=== PATIENT | female | born 1945 | race Caucasian/White ===

== ENCOUNTER 2020-12-29 09:16 | Outpatient (REF) | payer MEDICARE, SELFPAY ==
--- NOTE | 2020-12-29 16:34 | MHC.AU.P13 ---
Adult Audiological Evaluation Date of Visit: 12/29/20 Reason for Appointment: Audiological evaluation due to tinnitus and concern for hearing loss. Patient reports that she began experiencing tinnitus approximately one year ago, first in her left ear only then later in both ears. She states that the tinnitus in the left ear is a crunching sound, while in the right ear it is a metallic sound. 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 Allergies: Medication List: Inhaler twice daily Otoscopy: Right Ear: Unremarkable Left Ear: Unremarkable Tympanometry: Tympanometry performed due to: To assess integrity of the middle ear system Right Ear: Normal Middle Ear System (Type A) Left Ear: Normal Middle Ear System (Type A) Hearing Evaluation: Transducer(s) Used: Insert Earphones, Bone Conduction Method: Conventional Audiometry Stimuli Used: Pure Tones Right Ear: Description of Hearing: Normal hearing from 250-2000 Hz, sloping to a mild to moderate sensorineural hearing loss from 4558-0297 Hz. Left Ear: Description of Hearing: Normal hearing from 250-3000 Hz, sloping to a mild to moderate sensorineural hearing loss from 3931-1430 Hz. Speech Recognition Threshold (SRT): Method Used: Monitored Live Voice Stimuli Used: Spondee Words Right Ear: -5 dBHL Left Ear: -10 dBHL Word Discrimination: Method: Recorded Lists Word Lists Used: NU-6 Right Ear: 88% at 50 dBHL Left Ear: 96% at 50 dBHL Recommendations: Audiological re-evaluation in one year. Amplification is not warranted at this time. Counseled on exacerbating factors of tinnitus (nicotine, salt, caffeine, some medications) and tinnitus management strategies (use of noise makers, fans, music, TV to mask the tinnitus, hearing aids). Diagnosis: Primary Diagnosis: H90.3 Bilateral Sensorineural Hearing Loss Secondary Diagnosis: H93.13 Tinnitus, Bilateral Services Performed: Services Performed: Comprehensive Audiological Evaluation (CPT 27736) Tympanometry (CPT 35994) Signature: Provider: Yuliana Woodruff, CCC-A
== END 2020-12-29 09:17 | disposition home or self-care (01) ==
LOC: HO.SH 09:16
PROVIDERS: Visit Provider Internal Medicine
DX: H93.19 Tinnitus, unspecified ear (principal)
CPT/HCPCS: 92557; 92567

== ENCOUNTER 2021-07-27 08:12 | Outpatient (REF) | payer MEDICARE, SELFPAY ==
--- NOTE | ~2021-07-27 | MM_ITS ---
EXAMINATION: BONE DENSITOMETRY CLINICAL INDICATION: Osteopenia. COMPARISON: Previous BD dated 02/16/2017 and baseline BD dated 10/17/2008. TECHNIQUE: Using a [employer] DXA System (software version: 13.1) manufactured by [employer], dual-energy x-ray absorptiometry was performed of the lumbar spine and left hip. The images are of good technical quality. Summary results are attached. FINDINGS: AP SPINE L1-L4: Current: BMD 0.932 g/cm2, Z-score 0.0, T-score -2.1, osteopenia, 1.9% decrease from previous, 2.0% increase from baseline (<5% change is not significant). Prior: BMD 0.950 g/cm2. Baseline: BMD 0.914 g/cm2. LEFT FEMUR, NECK: Current: BMD 0.660 g/cm2, Z-score -0.5, T-score -2.7, osteoporosis. Prior: BMD 0.690 g/cm2. Baseline: BMD 0.692 g/cm2. LEFT FEMUR, TOTAL: Current: BMD 0.830 g/cm2, Z-score 0.6, T-score -1.4, osteopenia, 1.1% increase from previous, 2.8% decrease from baseline (<5% change is not significant). Prior: BMD 0.821 g/cm2. Baseline: BMD 0.854 g/cm2. IDENTIFIED RISK FACTORS: Menopause, family history (parent hip fracture). HISTORY OF FRACTURE: None listed. MEDICATIONS: Calcium, vitamin D. MM/XR DEXA axial skeleton IMPRESSION: 1. DIAGNOSIS: Osteoporosis based on the lowest T-score value of -2.7 in the femoral neck applying World Health Organization criteria. 2. 10-YEAR FRACTURE RISK PREDICTION, FRAX: Major osteoporotic fracture (clinical spine, forearm, hip or shoulder) 39.0%. Hip fracture 28.2%. 3. Treatment Recommendations: NOF guidelines recommend consideration for treatment in postmenopausal women and men age 50 and older presenting with the following: -A hip or vertebral (clinical or morphometric) fracture. -T-score less than or equal to -2.5 at the femoral neck or spine after appropriate evaluation to exclude secondary causes. -Low bone mass at the hip or spine and a 10-year fracture probability by FRAX of greater than or equal to 3% for hip fracture or greater than or equal to 20% for major osteoporotic fracture based on the [place] adapted WHO algorithm. 4. Other Recommendations: All treatment decisions require clinical judgment and consideration of individual patient factors, including patient preferences, comorbidities, previous drug use, risk factors not captured in the FRAX model (e.g. frailty, falls, vitamin D deficiency, increased bone turnover, interval significant decline in bone density) and possible under or overestimation of fracture risk by FRAX. Additional medical evaluation for secondary cause of low bone mineral density may be appropriate. FUTURE SCAN RECOMMENDATION: People with diagnosed cases of osteoporosis or at high risk for fracture should have regular bone mineral density tests. For patients eligible for Medicare, routine testing is allowed once every 2 years. The testing frequency can be increased to one year for patients who have rapidly progressing disease, those who are receiving or discontinuing medical therapy to restore bone mass, or have additional risk factors.
--- NOTE | ~2021-07-27 | MM_ITS ---
EXAMINATION: MM SCREENING DIGITAL BREAST TOMOSYNTHESIS, BILATERAL CLINICAL INFORMATION: Screening. Asymptomatic. History left lumpectomy COMPARISON: Mammography: June 17, 2020 and studies dating back to November 03, 2011 TECHNIQUE: Digital breast tomosynthesis is performed in both the craniocaudal and mediolateral oblique views along with computer-aided detection (CAD). Synthesized 2D images are generated from the tomosynthesis. FINDINGS: There are scattered areas of fibroglandular density (ACR BI-RADS breast composition Category b). There are no new significant masses, abnormal calcifications, or other abnormalities. Left breast postsurgical change again seen. MM/MM tomosynthesis screening BI IMPRESSION: There are no significant changes from prior study. ASSESSMENT: BI-RADS 2: Benign RECOMMENDATION: Routine annual mammography screening. This patient's information was entered into a reminder system with a target due date for their next mammogram.
== END 2021-07-27 08:13 | disposition home or self-care (01) ==
LOC: HO.MAMMO 08:12
PROVIDERS: PCP Internal Medicine; Visit Provider Internal Medicine
DX: Z13.820 Encounter for screening for osteoporosis (principal); Z78.0 Asymptomatic menopausal state; M85.80 Other specified disorders of bone density and structure, unspecified site; Z12.31 Encounter for screening mammogram for malignant neoplasm of breast
CPT/HCPCS: 77063; 77067; 77080

== ENCOUNTER 2021-09-20 12:55 | Day surgery (SDC) | payer MEDICARE, SELFPAY ==
[2021-09-13 14:36] VITALS: BMI 24.7
--- NOTE | 2021-09-17 11:07 | HO.ANESPROP2 ---
Documented by User: Mariajose Talavera NP 09/17/21 11:08 HPI - Anesthesia Eval Consult details Narrative: 76yo F for Colonoscopy PMFSH Active Problems Active Problems: All Active Problems (Updated 09/13/21 @ 14:20 by Jeny James RN) Impacted cerumen of left ear (Acute) Tinnitus (Acute) Anxiety (Acute) Annual physical exam (Acute) Osteopenia (Acute) Colon cancer screening (Acute) Positive colorectal cancer screening using Cologuard test (Acute) Allergic rhinitis (Acute) Breast cancer (Acute) Hypercholesterolemia (Acute) Asthma (Acute) Past Medical History Medical History (Updated 09/13/21 @ 14:20 by Jeny James RN) Allergic rhinitis Asthma Breast cancer COVID-19 vaccine series completed Hypercholesterolemia Multiple sclerosis Osteopenia Pulmonary nodule Rotator cuff dysfunction Vitamin B12 deficiency Vitamin D deficiency Surgical History Surgical History (Updated 09/13/21 @ 14:17 by Jeny James RN) H/O colonoscopy History of lumpectomy of left breast Social History Social History (Updated 09/13/21 @ 14:34 by Jeny James RN) Housing: House Patient Tobacco Use Status: Former Tobacco user Quit Date: age 19 Tobacco use type: Cigarette e-Cigarette/Vaping Use: Never Used Second Hand Smoke Exposure: No Use of substances other than those prescribed or required for medical reasons: No Advance Directives Information Provided: Yes (informational brochure mailed) Advance Directives on File: No service: No Current occupational status: retired Meds Allergies Allergy/AdvReac Type Severity Reaction Status Date / Time Sulfa (Sulfonamide Allergy Intermediate ITCHING Verified 09/13/21 14:19 Antibiotics) [SULFA (SULFONAMIDE ANTIBIOTICS)] cholecalciferol (vitamin D3) Allergy Unknown Unknown Verified 09/13/21 14:19 [Vitamin D3] Home Medications Medication Instructions Recorded Confirmed Last Taken Type ibuprofen 400 mg tablet 400 mg PO TID 11/26/20 09/13/21 Unknown History lactobacillus combination no.8 3 3,000 mmu cells PO DAILY 11/26/20 09/13/21 Unknown History billion cell capsule (Adult Probiotic) multivitamin 1 tab PO DAILY 11/26/20 09/13/21 Unknown History Exam Exam Date and Time: September 17, 2021 1107 Height,Weight and Vital Signs: Height 5 ft Weight 57.606 kg Assessment and Plan Assessment Anesthesia Assessment: Chart Reviewed Documented by User: Titus Jimenez 09/20/21 15:04 PMFSH Past Medical History Medical History (Updated 09/13/21 @ 14:20 by Jeny James RN) Allergic rhinitis Asthma Breast cancer COVID-19 vaccine series completed Hypercholesterolemia Multiple sclerosis Osteopenia Pulmonary nodule Rotator cuff dysfunction Vitamin B12 deficiency Vitamin D deficiency Functional capacity: independent ambulation Family History Family history of problems with anesthesia: No Surgical History Surgical History (Updated 09/13/21 @ 14:17 by Jeny James RN) H/O colonoscopy History of lumpectomy of left breast History of Problems with Anesthesia: No Social History Social History (Updated 09/13/21 @ 14:34 by Jeny James RN) Housing: House Patient Tobacco Use Status: Former Tobacco user Quit Date: age 19 Tobacco use type: Cigarette e-Cigarette/Vaping Use: Never Used Second Hand Smoke Exposure: No Use of substances other than those prescribed or required for medical reasons: No Advance Directives Information Provided: Yes (informational brochure mailed) Advance Directives on File: No service: No Current occupational status: retired Meds Allergies Allergy/AdvReac Type Severity Reaction Status Date / Time Sulfa (Sulfonamide Allergy Intermediate ITCHING Verified 09/13/21 14:19 Antibiotics) [SULFA (SULFONAMIDE ANTIBIOTICS)] cholecalciferol (vitamin D3) Allergy Unknown Unknown Verified 09/13/21 14:19 [Vitamin D3] Home Medications Medication Instructions Recorded Confirmed Last Taken Type ibuprofen 400 mg tablet 400 mg PO TID 11/26/20 09/13/21 Unknown History lactobacillus combination no.8 3 3,000 mmu cells PO DAILY 11/26/20 09/13/21 Unknown History billion cell capsule (Adult Probiotic) multivitamin 1 tab PO DAILY 11/26/20 09/13/21 Unknown History Exam Airway Mallampati Class: III Partial: Upper and Lower Loose/Missing/Broken Teeth: Yes Assessment and Plan Final Anesthetic Review Family History of Problems with Anesthesia: No History of Problems with Anesthesia: No NPO: Yes ASA Class: II Final Preanesthetic Review: Meds/Lina Chart Reviewed Patient Risk: Intermediate Procedure Risk: Intermediate Anesthetic Plan Anesthetic Plan: MAC: Disposition: Standard PACU
[2021-09-20 13:23] VITALS: BP 141/66; PULSE 81; RESP 15; TEMP 37.1; O2SAT 97; BMI 24.4
[2021-09-20] MEDS: Lactated Ringers 1,000 ML 100 ML IVCONT (13:48)
[2021-09-20 16:08] VITALS: BP 125/69; PULSE 64; RESP 16; TEMP 36.2; O2SAT 99
--- NOTE | 2021-09-20 16:10 | P.BOP_ITS ---
Brief Operative Note Date of Service: 09/20/21 Pre-op diagnosis: + Cologuard Test Post-op diagnosis: other (Diverticulosis) Procedure: Colonoscopy to the cecum Surgeon: John Tellez Anesthesia: MAC Was an Professor Of Mathematics used for this Procedure?: No Estimated blood loss (mL): 0 Pathology: none sent Condition: stable Disposition: PACU
[2021-09-20 16:25] VITALS: BP 116/59; PULSE 70; RESP 18; TEMP 36.2; O2SAT 98
--- NOTE | 2021-09-20 20:30 | OP_ITS ---
SURGEON: John Tellez MD INDICATIONS: The patient presents for evaluation of positive Cologuard test. Full consent has been obtained from her for this, including risks of bleeding and perforation. PREOPERATIVE DIAGNOSIS: Positive Cologuard test. POSTOPERATIVE DIAGNOSIS: PROCEDURE PERFORMED: Colonoscopy to the cecum. ESTIMATED BLOOD LOSS: COMPLICATIONS: ANESTHESIA: Monitored anesthesia care. ASSISTANTS: SPECIMENS: POSTOPERATIVE DIAGNOSES: Positive Cologuard test, diverticulosis and internal hemorrhoids. DESCRIPTION OF PROCEDURE: The patient was placed in the left lateral decubitus position. The digital rectal exam revealed no abnormalities. The Olympus video pediatric colonoscope was entered into the rectum and advanced to the cecum with the assistance of abdominal wall pressure. Once in the cecum, I did identify normal-appearing cecal pouch with appendiceal orifice and a normal-appearing ileocecal valve. There was transillumination of light deep in the right lower quadrant. The entire cecum and ileocecal valve appeared normal. The scope was slowly withdrawn assessing all mucosal surfaces carefully. Preparation throughout the colon was very good except for the descending and sigmoid colon had some fair amount of thick liquid stool, which was copiously irrigated and suctioned away. For the most part, visualization was good, although was not ideal. I did not visualize any sign of polyps, colitis, nor angiodysplasia. There was a mild amount of sigmoid diverticulosis. The rectum appeared normal, although I was having trouble retroflexing the scope. However in the forward viewing position, I obtained a good visualization and both the proximal and distal rectum did appear normal. The scope was withdrawn from the patient. She tolerated procedure well and was returned to the recovery area in stable condition. IMPRESSION: Diverticulosis. PLAN: At this point, the patient has been asymptomatic. She had a negative colonoscopy in 2009 and given today's negative exam, I do not think she will need any further screening colonoscopies. She has had no signs of bleeding nor any change in bowel habits. She will see me again on a p.r.n. basis. MD TAM Rodriguez/NAVEEN / [id number]
== END 2021-09-20 16:31 | disposition home or self-care (01) ==
PROVIDERS: PCP Internal Medicine; Visit Provider Internal Medicine
PROC: 0DJD8ZZ Inspection of Lower Intestinal Tract, Via Natural or Artificial Opening Endoscopic (ICD-10-PCS; CPT 45378; principal; 2021-09-20 14:10)
DX: R19.5 Other fecal abnormalities (principal); K57.30 Diverticulosis of large intestine without perforation or abscess without bleeding; K64.8 Other hemorrhoids; J45.909 Unspecified asthma, uncomplicated; G35 Multiple sclerosis; Z79.899 Other long term (current) drug therapy; Z85.3 Personal history of malignant neoplasm of breast; Z92.3 Personal history of irradiation; Z92.21 Personal history of antineoplastic chemotherapy; Z87.891 Personal history of nicotine dependence
CPT/HCPCS: 45378

== ENCOUNTER 2021-12-17 07:56 | Outpatient (REF) | payer MEDICARE, SELFPAY ==
[2021-12-17 12:06] LABS: MANUAL DIFF FLAG NO
[2021-12-17 12:07] LABS: Basophils Absolute Auto 0.1 X10*3/uL (0.0-0.2); Basophils Percent Auto 0.9 % (0-2); Eosinophils Absolute Auto 0.3 X10*3/uL (0.0-0.4); Eosinophils Percent Auto 5.2 % (0-4); Hematocrit 39.8 % (37.0-47.0); Imm Gran Abs Auto 0.01 X10*3/uL (0.00-0.03); Imm Gran Pct Auto 0.2 % (0.0-0.4); Lymphocytes Absolute Auto 1.4 X10*3/uL (1.2-4.9); Lymphocytes Percent Auto 26.2 % (20-40); Mean Corpuscular HGB Conc 32.7 g/dl (31.0-35.0); Mean Corpuscular Hemoglobin 31.6 pg (27.0-33.0); Mean Corpuscular Volume 96.6 fL (80.0-98.0); Mean Platelet Volume 11.1 fL (9.4-12.3); Monocytes Absolute Auto 0.5 X10*3/uL (0.1-1.2); Monocytes Percent Auto 8.4 % (2-11); Neutrophils Absolute Auto 3.2 x10*3/uL (2.0-8.3); Neutrophils Percent Auto 59.1 % (45-73); Platelet Count 248 X10*3/uL (160-400); Red Blood Count 4.12 X10*6/uL (4.20-5.50); Red Cell Distribution Width 13.2 % (11.0-16.0); White Blood Count 5.3 X10*3/uL (4.8-10.8)
[2021-12-17 12:35] LABS: Alanine Aminotransferase 11 U/L (0-31); Albumin Level 4.1 g/dL (3.5-5.0); Alkaline Phosphatase 104 U/L (39-117); Anion Gap 11 (12-20); Aspartate Amino Transferase 14 U/L (5-31); Bilirubin Total 0.7 mg/dL (0.0-1.0); Blood Urea Nitrogen 18 mg/dL (9-16); Calcium 9.2 mg/dL (8.4-10.2); Carbon Dioxide 31 mmol/L (22-29); Chloride 102 mmol/L (96-108); Cholesterol 233 mg/dL; Estimated Glomerular Filt Rate > 60; Glucose Random 82 mg/dL (60-115); HDL Cholesterol 73 mg/dL; LDL Cholesterol Calculated 144 mg/dl; Potassium 4.3 mmol/L (3.3-5.1); Sodium 140 mmol/L (135-145); Total Protein 6.9 g/dL (6.5-8.0); Triglycerides 83 mg/dL
[2021-12-17 12:49] LABS: Free T4 (Free Thyroxine) 0.86 ng/dL (0.71-1.85); Thyroid Stimulating Hormone 3.32 uIU/mL (0.32-4.0); Vitamin D 25-OH Total 17.5 ng/mL (>30)
[2021-12-17 12:56] LABS: Folate 7.3 ng/mL (> or = 4.0); Vitamin B12 262 pg/mL (200-900)
== END 2021-12-17 07:57 | disposition home or self-care (01) ==
LOC: HO.10HDL 07:56
PROVIDERS: Visit Provider Internal Medicine
DX: E78.00 Pure hypercholesterolemia, unspecified (principal)
CPT/HCPCS: 36415; 80053; 80061; 82306; 82607; 82746; 84439; 84443; 85025

== ENCOUNTER 2022-08-02 08:07 | Outpatient (REF) | payer MEDICARE, SELFPAY ==
--- NOTE | ~2022-08-02 | MM_ITS ---
EXAMINATION: MM SCREENING DIGITAL BREAST TOMOSYNTHESIS, BILATERAL CLINICAL INFORMATION: Screening. Asymptomatic. Left breast cancer status post lumpectomy, 2000. COMPARISON: Mammography: 07/27/2021, 06/21/2020, 03/23/2019 TECHNIQUE: Digital breast tomosynthesis is performed in both the craniocaudal and mediolateral oblique views along with computer-aided detection (CAD). Synthesized 2D images are generated from the tomosynthesis. FINDINGS: There are scattered areas of fibroglandular density (ACR BI-RADS breast composition Category b). There are post therapy changes on the left similar to prior studies with stable scarring, surgical clips, reduced breast size, biopsy clip marker within the scar, and benign coarse calcifications in the scar. The breast shows interval mass or architectural abnormality or developing density. No abnormal calcifications. No significant changes from prior studies. MM/MM tomosynthesis screening BI IMPRESSION: -No mammographic evidence of malignancy. -Post therapy changes, left breast. ASSESSMENT: BI-RADS 2: Benign RECOMMENDATION: Routine annual mammography screening. This patient's information was entered into a reminder system with a target due date for their next mammogram.
== END 2022-08-02 08:08 | disposition home or self-care (01) ==
LOC: HO.MAMMO 08:07
PROVIDERS: Visit Provider Internal Medicine
DX: Z12.31 Encounter for screening mammogram for malignant neoplasm of breast (principal)
CPT/HCPCS: 77063; 77067

== ENCOUNTER 2023-02-02 07:37 | Outpatient (REF) | payer MEDICARE, SELFPAY ==
[2023-02-02 10:42] LABS: MANUAL DIFF FLAG NO
[2023-02-02 10:51] LABS: Basophils Absolute Auto 0.1 X10*3/uL (0.0-0.2); Eosinophils Absolute Auto 0.5 X10*3/uL (0.0-0.4); Eosinophils Percent Auto 7.2 % (0-4); Hematocrit 42.3 % (37.0-47.0); Hemoglobin 13.9 g/dl (12.0-16.0); Imm Gran Abs Auto 0.02 X10*3/uL (0.00-0.03); Imm Gran Pct Auto 0.3 % (0.0-0.4); Lymphocytes Absolute Auto 1.2 X10*3/uL (1.2-4.9); Lymphocytes Percent Auto 19.3 % (20-40); Mean Corpuscular HGB Conc 32.9 g/dl (31.0-35.0); Mean Corpuscular Volume 97.5 fL (80.0-98.0); Mean Platelet Volume 11.2 fL (9.4-12.3); Monocytes Absolute Auto 0.4 X10*3/uL (0.1-1.2); Monocytes Percent Auto 6.1 % (2-11); Neutrophils Absolute Auto 4.2 x10*3/uL (2.0-8.3); Neutrophils Percent Auto 66.1 % (45-73); Platelet Count 260 X10*3/uL (160-400); Red Blood Count 4.34 X10*6/uL (4.20-5.50); Red Cell Distribution Width 13.1 % (11.0-16.0); White Blood Count 6.3 X10*3/uL (4.8-10.8)
[2023-02-02 11:21] LABS: Alanine Aminotransferase 12 U/L (0-31); Albumin Level 4.3 g/dL (3.5-5.0); Alkaline Phosphatase 91 U/L (39-117); Anion Gap 14 (12-20); Aspartate Amino Transferase 13 U/L (5-31); Bilirubin Total 0.6 mg/dL (0.0-1.0); Blood Urea Nitrogen 15 mg/dL (9-16); Calcium 9.2 mg/dL (8.4-10.2); Carbon Dioxide 29 mmol/L (22-29); Chloride 104 mmol/L (96-108); Cholesterol 245 mg/dL; Estimated Glomerular Filt Rate > 60; Glucose Random 77 mg/dL (60-115); HDL Cholesterol 78 mg/dL; LDL Cholesterol Calculated 154 mg/dl; Potassium 4.2 mmol/L (3.3-5.1); Sodium 143 mmol/L (135-145); Total Protein 6.8 g/dL (6.5-8.0); Triglycerides 67 mg/dL
[2023-02-02 11:51] LABS: Folate 9.2 ng/mL (> or = 4.0); Free T4 (Free Thyroxine) 0.92 ng/dL (0.71-1.85); Thyroid Stimulating Hormone 2.98 uIU/mL (0.32-4.0); Vitamin B12 233 pg/mL (200-900); Vitamin D 25-OH Total 14.5 ng/mL (>30)
== END 2023-02-02 07:38 | disposition home or self-care (01) ==
LOC: HO.10HDL 07:37
PROVIDERS: Visit Provider Internal Medicine
DX: J45.20 Mild intermittent asthma, uncomplicated (principal); E78.00 Pure hypercholesterolemia, unspecified; M81.0 Age-related osteoporosis without current pathological fracture
CPT/HCPCS: 36415; 80053; 80061; 82306; 82607; 82746; 84439; 84443; 85025

== ENCOUNTER 2023-08-11 07:47 | Outpatient (REF) | payer MEDICARE, SELFPAY ==
--- NOTE | ~2023-08-11 | MM_ITS ---
EXAMINATION: MM SCREENING DIGITAL BREAST TOMOSYNTHESIS, BILATERAL CLINICAL INFORMATION: Screening. Asymptomatic. The patient has a history of prior treated left breast cancer. COMPARISON: Mammography: This study is compared with prior exams dating back to 2017. TECHNIQUE: Digital breast tomosynthesis is performed in both the craniocaudal and mediolateral oblique views along with computer-aided detection (CAD). Synthesized 2D images are generated from the tomosynthesis. FINDINGS: There are scattered areas of fibroglandular density (ACR BI-RADS breast composition Category b). There are no significant masses, abnormal calcifications, or other abnormalities. There is postsurgical scarring and associated, benign, dystrophic calcification left breast from prior breast cancer treatment. There is also a biopsy tissue marker present in the upper outer quadrant of the left breast, in the location of the surgical scar. MM/MM tomosynthesis screening BI IMPRESSION: No mammographic evidence of malignancy. ASSESSMENT: BI-RADS BI-RADS 2 - Benign Findings RECOMMENDATION: Routine annual mammography screening. 1 year F/U This examination should not preclude the clinical evaluation of a suspicious palpable abnormality. This patient's information was entered into a reminder system with a target due date for their next mammogram.
== END 2023-08-11 07:48 | disposition home or self-care (01) ==
LOC: HO.MAMMO 07:47
PROVIDERS: PCP Internal Medicine; Visit Provider Internal Medicine
DX: Z12.31 Encounter for screening mammogram for malignant neoplasm of breast (principal)
CPT/HCPCS: 77063; 77067

== ENCOUNTER → 2023-08-11 08:00 | Outpatient (BNV) | payer MEDICARE, SELFPAY | PROVIDERS: PCP Internal Medicine; Visit Provider Radiology Diagnostic Radiology | DX: Z12.31 Encounter for screening mammogram for malignant neoplasm of breast (principal) | CPT/HCPCS: 77063; 77067 ==

== ENCOUNTER 2023-10-05 15:05 | Outpatient (AMB) | payer MEDICARE, SELFPAY ==
[2023-10-05 15:12] VITALS: BP 126/68; PULSE 68; O2SAT 99; BMI 21.7
--- NOTE | 2023-10-05 15:12 | A.OFFPC_ITS ---
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 Allergies Sulfa (Sulfonamide Antibiotics) [SULFA (SULFONAMIDE ANTIBIOTICS)] Allergy (Intermediate, Verified 10/05/23 15:31) ITCHING cholecalciferol (vitamin D3) [Vitamin D3] Allergy (Unknown, Verified 10/05/23 15:31) Unknown Medication List - Last Reconciled 10/05/23 by Rasheed Guzman MD aclidinium bromide 400 mcg/actuation (Tudorza Pressair) 1 inh inhalation Q12H albuterol sulfate 90 mcg/actuation (Ventolin HFA) 2 puffs inhalation Q4-6H PRN alprazolam 0.25 mg PO DAILY PRN 30 days cetirizine (Zyrtec) 10 mg PO DAILY PRN fluticasone propion-salmeterol 250-50 mcg/dose (Wixela Inhub) 1 inh inhalation BID ibuprofen 400 mg PO TID lactobacillus combination no.8 (Adult Probiotic) 3,000 mmu cells PO DAILY montelukast 10 mg PO BEDTIME multivitamin 1 tab PO DAILY raloxifene (Evista) 60 mg PO DAILY 30 days Tobacco use date assessed: 10/05/23 Fall risk assessment: No Falls in past year Last assessed Fall Risk: 10/05/23 HPI generalizes weakness, fatigue HPI Details 78-year-old female with a history of ast hma generalized anxiety disorder history of breast cancer hypercholesterolemia and osteoporosis last seen in January 2023. Mammograms up-to-date osteopenia July 2021 due for bone density patient comes in for follow-up. 3 weeks ago , L ear crckling sound, ROACH - no covid testing , chills, weak 3 weeks , cough, no increase sob, , no frequency, , , mild diarrhea PFSH Medical History (Updated 10/05/23 @ 16:10 by Rasheed Guzman MD) Generalized anxiety disorder COVID-19 vaccine series completed Positive colorectal cancer screening using Cologuard test Colon cancer screening Annual physical exam Rotator cuff dysfunction Multiple sclerosis Allergic rhinitis Pulmonary nodule Hypercholesterolemia Vitamin B12 deficiency Vitamin D deficiency Breast cancer Asthma Surgical History (Updated 09/13/21 @ 14:17 by Jeny James RN) History of lumpectomy of left breast H/O colonoscopy Social History (Updated 09/13/21 @ 14:34 by Jeny James, RN) Housing: House Patient Tobacco Use Status: Former Tobacco user Quit Date: age 19 Tobacco use type: Cigarette e-Cigarette/Vaping Use: Never Used Second Hand Smoke Exposure: No service: No Current occupational status: retired Cognitive needs: No Hearing needs: No Vision needs: Yes Questionnaire Thrive Questionnaire Date Thrive assessed: 01/19/23 AUDIT C Alcohol Use Questionnaire (AUDIT-C) 1. How often do you have a drink containing alcohol?: Monthly or less 2. How many drinks containing alcohol do you have on a typical day when you are drinking?: 1 or 2 3. How often do you have six or more drinks on one occasion?: Never Total Score: 1 ERMA-7 AMB Questionnaire ERMA-7 Date ERMA - 7 assessed: 01/19/23 Source: Developed by Drs. John Coy, Maritza Lam, Neri Portillo and colleagues, with an educational paul from [employer]. Physical exam (Primary Care) Vital Signs: Last Vital Signs Pulse 68 10/05/23 15:12 BP 126/68 10/05/23 15:12 Pulse Ox 99 10/05/23 15:12 Oxygen Delivery Method Room Air 10/05/23 15:12 BMI result Body Mass Index 21.7 Tobacco/Smoking Status: Tobacco use Status Tobacco use date assessed 10/05/23 10/05/23 15:13 Patient Tobacco Use Status Former Tobacco user 10/05/23 15:13 Tobacco use type Cigarette 10/05/23 15:13 e-Cigarette/Vaping Use Never Used 10/05/23 15:13 Thrive Assessment: Date of Thrive Assessment Date Thrive assessed 01/19/23 10/05/23 15:13 Const General: alert; No acute distress Eyes Conjunctivae: conjunctivae normal Resp Other: decrease breath sounds, Cardio Rate: regular rate Rhythm: regular rhythm GI Inspection: Yes normal to inspection Extrem General: Yes normal to inspection and No edema Assessment and Plan Assessment & Plan (1) Breast cancer: Comment: 2000 left lumpectomy chemotherapy radiation Code(s): C50.919 - Malignant neoplasm of unspecified site of unspecified female breast Qualifiers: Breast location: unspecified site of breast Estrogen receptor status: unspecified Patient sex: female Laterality: left Qualified Code(s): C50.912 - Malignant neoplasm of unspecified site of left female breast Plan: Patient is up-to-date with mammogram on Evista (2) Asthma: Comment: has wixela & albuterol inhalers Code(s): J45.909 - Unspecified asthma, uncomplicated Qualifiers: Asthma severity: mild Asthma persistence: intermittent Asthma complication type: uncomplicated Qualified Code(s): J45.20 - Mild intermittent asthma, uncomplicated Plan: Continue with inhaler as needed and on fluticasone/salmeterol/Tudorza (3) Hypercholesterolemia: Code(s): E78.00 - Pure hypercholesterolemia, unspecified Plan: Avoid fried foods, chicken skin, eggs, butter margarine, pastries and meat. Be it pork or beef they have a lot of cholesterol LDL goal of less than 130 and triglyceride of less than 150 (4) Osteoporosis: Comment: July 2021 Code(s): M81.0 - Age-related osteoporosis without current pathological fracture Plan: Patient is due for bone density (5) ERMA (generalized anxiety disorder): Code(s): F41.1 - Generalized anxiety disorder Plan: Continue with alprazolam as needed (6) Impacted cerumen of both ears: Code(s): H61.23 - Impacted cerumen, bilateral Plan: will need irrigation Orders: Orders Complete Blood Count Auto Diff Today J45.20 - Mild intermittent asthma, uncomplicated Comprehensive Met. Panel Today J45.20 - Mild intermittent asthma, uncomplicated UA CC w/rflx Micro + Cult Today J45.20 - Mild intermittent asthma, uncomplicated, R30.0 - Dysuria XR chest 2V Today J45.20 - Mild intermittent asthma, uncomplicated Thyroid Stimulating Hormone Today J45.20 - Mild intermittent asthma, uncomplicated Free T4 (Free Thyroxine) Today J45.20 - Mild intermittent asthma, uncomplicated Coding Level of Care Code Est Pt Level 4 (73885) Diagnoses Malignant neoplasm of left female breast, unspecified estrogen receptor status, unspecified site of breast C50.912 Breast location: unspecified site of breast Estrogen receptor status: unspecified Patient sex: female Laterality: left Mild intermittent asthma without complication J45.20 Asthma severity: mild Asthma persistence: intermittent Asthma complication type: uncomplicated Hypercholesterolemia E78.00 Osteoporosis M81.0 ERMA (generalized anxiety disorder) F41.1 Impacted cerumen of both ears H61.23
== END 2023-10-05 16:18 | disposition home or self-care (01) ==
PROVIDERS: PCP Internal Medicine; Visit Provider Internal Medicine
DX: C50.912 Malignant neoplasm of unspecified site of left female breast (principal); J45.20 Mild intermittent asthma, uncomplicated; E78.00 Pure hypercholesterolemia, unspecified; M81.0 Age-related osteoporosis without current pathological fracture; F41.1 Generalized anxiety disorder; H61.23 Impacted cerumen, bilateral
CPT/HCPCS: 99214

== ENCOUNTER 2023-10-12 07:57 | Outpatient (REF) | payer MEDICARE, SELFPAY ==
[2023-10-12 08:14] LABS: MANUAL DIFF FLAG NO
[2023-10-12 08:19] LABS: Basophils Absolute Auto 0.1 X10*3/uL (0.0-0.2); Basophils Percent Auto 1.3 % (0-2); Eosinophils Absolute Auto 0.4 X10*3/uL (0.0-0.4); Eosinophils Percent Auto 9.7 % (0-4); Hemoglobin 13.3 g/dl (12.0-16.0); Imm Gran Abs Auto 0.01 X10*3/uL (0.00-0.03); Imm Gran Pct Auto 0.2 % (0.0-0.4); Lymphocytes Absolute Auto 1.4 X10*3/uL (1.2-4.9); Lymphocytes Percent Auto 30.6 % (20-40); Mean Corpuscular HGB Conc 33.3 g/dl (31.0-35.0); Mean Corpuscular Hemoglobin 32.4 pg (27.0-33.0); Mean Corpuscular Volume 97.6 fL (80.0-98.0); Mean Platelet Volume 10.1 fL (9.4-12.3); Monocytes Absolute Auto 0.4 X10*3/uL (0.1-1.2); Monocytes Percent Auto 8.1 % (2-11); Neutrophils Absolute Auto 2.3 x10*3/uL (2.0-8.3); Neutrophils Percent Auto 50.1 % (45-73); Platelet Count 230 X10*3/uL (160-400); Red Cell Distribution Width 12.8 % (11.0-16.0); White Blood Count 4.5 X10*3/uL (4.8-10.8)
[2023-10-12 09:45] LABS: Alanine Aminotransferase 12 U/L (0-31); Alkaline Phosphatase 71 U/L (39-117); Anion Gap 13 (12-20); Aspartate Amino Transferase 15 U/L (5-31); Bilirubin Total 0.4 mg/dL (0.0-1.0); Blood Urea Nitrogen 13 mg/dL (9-16); Calcium 9.1 mg/dL (8.4-10.2); Carbon Dioxide 28 mmol/L (22-29); Chloride 106 mmol/L (96-108); Estimated Glomerular Filt Rate > 60; Free T4 (Free Thyroxine) 0.85 ng/dL (0.71-1.85); Glucose Random 85 mg/dL (60-115); Potassium 3.8 mmol/L (3.3-5.1); Sodium 143 mmol/L (135-145); Thyroid Stimulating Hormone 3.76 uIU/mL (0.32-4.0); Total Protein 6.8 g/dL (6.5-8.0)
== END 2023-10-12 07:58 | disposition home or self-care (01) ==
LOC: HO.LAB 07:57
PROVIDERS: PCP Internal Medicine; Visit Provider Internal Medicine
DX: J45.20 Mild intermittent asthma, uncomplicated (principal); R30.0 Dysuria
CPT/HCPCS: 36415; 71046; 80053; 84439; 84443; 85025

== ENCOUNTER 2023-12-25 09:53 | Outpatient (AMB) | payer MEDICARE, SELFPAY ==
[2023-12-25 09:54] VITALS: BP 116/64; PULSE 80; O2SAT 93; BMI 21.3
--- NOTE | 2023-12-25 09:54 | A.OFFPC_ITS ---
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 Patient was also found to have impacted cerumen and is here to have the cerumen irrigated. Patient did have blood work . o2 sat poor with nail urdu. states has sob recetly and had congesetion - got [employer] [facility] allregy med - getting better bu takes 1/2 tab only due to drying. L chest heaviness state feels like heart burn. for the asthma - on inhalers- on wixela and and has beendoing regular. does have the albuterol and does not use a lot [facility] Medical History (Updated 12/25/23 @ 10:20 by Rasheed Guzman MD) Generalized anxiety disorder COVID-19 vaccine series completed Positive colorectal cancer screening using Cologuard test Colon cancer screening Annual physical exam Rotator cuff dysfunction Multiple sclerosis Allergic rhinitis Pulmonary nodule Hypercholesterolemia Vitamin B12 deficiency Vitamin D deficiency Breast cancer Asthma Surgical History (Updated 09/13/21 @ 14:17 by Jeny James RN) History of lumpectomy of left breast H/O colonoscopy Social History (Updated 09/13/21 @ 14:34 by Jeny James RN) Housing: House Patient Tobacco Use Status: Former Tobacco user Quit Date: age 19 Tobacco use type: Cigarette e-Cigarette/Vaping Use: Never Used Second Hand Smoke Exposure: No service: No Current occupational status: retired Cognitive needs: No Hearing needs: No Vision needs: Yes Questionnaire Thrive Questionnaire Date Thrive assessed: 12/25/23 AUDIT C Alcohol Use Questionnaire (AUDIT-C) 1. How often do you have a drink containing alcohol?: Monthly or less 2. How many drinks containing alcohol do you have on a typical day when you are drinking?: 1 or 2 3. How often do you have six or more drinks on one occasion?: Never Total Score: 1 ERMA-7 AMB Questionnaire ERMA-7 Date ERMA - 7 assessed: 12/25/23 Source: Developed by Drs. John Coy, Maritza Lam, Neri Portillo and colleagues, with an educational paul from [employer]. Physical exam (Primary Care) Vital Signs: Last Vital Signs Pulse 80 12/25/23 09:54 BP 116/64 12/25/23 09:54 Pulse Ox 93 12/25/23 09:54 Oxygen Delivery Method Room Air 12/25/23 09:54 BMI result Body Mass Index 21.3 Tobacco/Smoking Status: Tobacco use Status Tobacco use date assessed 12/25/23 12/25/23 09:56 Patient Tobacco Use Status Former Tobacco user 12/25/23 09:56 Tobacco use type Cigarette 12/25/23 09:56 e-Cigarette/Vaping Use Never Used 12/25/23 09:56 Thrive Assessment: Date of Thrive Assessment Date Thrive assessed 12/25/23 12/25/23 09:56 HENMT Other: Impacted cerumen bilateral Office Procedures Cerumen Removal From which ear canal was the cerumen removed: bilateral Removal: irrigation, otoscope w/curette, cerumen loop/spoon and other [id number] Irrigation/Lavage Assessment and Plan Assessment & Plan (1) Impacted cerumen of both ears: Code(s): H61.23 - Impacted cerumen, bilateral Plan: irrigation done and TM intact (2) Chest pain: Code(s): R07.9 - Chest pain, unspecified (3) Asthma: Comment: has wixela & albuterol inhalers Code(s): J45.909 - Unspecified asthma, uncomplicated Qualifiers: Asthma complication type: uncomplicated Asthma persistence: intermittent Asthma severity: mild Qualified Code(s): J45.20 - Mild intermittent asthma, uncomplicated Orders: Orders CA stress test Today R07.9 - Chest pain, unspecified Coding Level of Care Code Est Pt Level 4 (64489) Diagnoses Impacted cerumen of both ears H61.23 Chest pain R07.9 Mild intermittent asthma without complication J45.20 Asthma complication type: uncomplicated Asthma persistence: intermittent Asthma severity: mild CPT Codes Office Procedure - CPT: 41401-Yjt Irrigation/Lavage ([id number])
== END 2023-12-25 10:28 | disposition home or self-care (01) ==
PROVIDERS: PCP Internal Medicine; Visit Provider Internal Medicine
DX: H61.23 Impacted cerumen, bilateral (principal); R07.9 Chest pain, unspecified; J45.20 Mild intermittent asthma, uncomplicated
CPT/HCPCS: 69210; 99214

== ENCOUNTER → 2024-01-02 10:22 | Outpatient (REF) | payer MEDICARE, SELFPAY ==
--- NOTE | 2024-01-02 10:24 | CA_ITS ---
Acquisition Time: 2024-01-02 10:34:54 Total Exercise Time: 00:00:27 Test Indications: Dyspnea CHEST PAIN Medications: SEE H Protocol: KELLEN Max HR: 131 BPM 92% of Pred: 141 BPM Max BP: 138/074 mmHG Max Work Load: 1.7 METS Stress test exercise 27 sec of Kellen protocol. Test terminated due to unable to walk on treadmill. No anginal symptoms. Test reviewed with Dr. Mancera. Referred By: Rasheed Guzman Overread By: Lisa Beaver
== END ==
LOC: HO.CARD 10:22
PROVIDERS: PCP Internal Medicine; Visit Provider Internal Medicine
DX: R07.9 Chest pain, unspecified (principal)
CPT/HCPCS: 93017

== ENCOUNTER → 2024-01-02 10:24 | Outpatient (BNV) | payer MEDICARE, SELFPAY | PROVIDERS: PCP Internal Medicine; Visit Provider Nurse Practitioner | DX: R07.9 Chest pain, unspecified (principal); R06.00 Dyspnea, unspecified | CPT/HCPCS: 93016; 93018 ==

== ENCOUNTER → 2024-02-02 07:47 | Outpatient (REF) | payer MEDICARE, SELFPAY ==
--- NOTE | ~2024-02-02 | NM_ITS ---
Lexiscan Myocardial perfusion study Indication: Chest pain, assess for coronary disease and ischemia Technique: The patient was brought in for a Lexiscan perfusion study on 02/02/2024 and was injected 0.4 mg of Lexiscan intravenously. Within a minute of this injection 25 mCi of sestamibi was given intravenously. Images were obtained using the SPECT gamma camera interlaced with the gating device. Images were obtained in supine position. Resting perfusion study was performed on 02/05/2024. Patient was administered 25 mCi of sestamibi intravenously at rest. Images were then obtained in supine position. Images were processed with the software and compared side to side in short axis, horizontal long axis and vertical long axis views. Total DLP 68mGy-cm. Findings: Raw acquisition reviewed. The stress perfusion study showed diminished tracer uptake along the distal part of anterior wall; basal to mid septum/anterior septum. Somewhat of an improvement with CT attenuation correction and could have components of soft tissue attenuation artifact. The gated study shows normal LV systolic function with calculated LVEF of 57%. LV cavity is normal in size. The gated study shows normal wall thickening and contraction of segments. Resting study shows diminished tracer uptake in the distal part of anterior wall, septum as well as inferior septum. There is improvement with CT attenuation correction and hence could've components of soft tissue as well as diaphragmatic attenuation artifact. Gating at rest reveals normal wall motion with ejection fraction at 61%. The findings are consistent with fixed perfusion defect in the anterior wall, septum. No clear reversible defects. Could be all artifactual. NM/NM cardiolite stress test Impression: 1. Myocardial perfusion imaging study shows no clear evidence of any ischemia or infarction. Probably artifactual fixed defects in the distal part of anterior wall as well as septum. 2. Gated LVEF is 57% during stress and 61% during rest. 3. Transient ischemic dilatation not present. EKG component of the test reported separately.
--- NOTE | 2024-02-02 07:50 | CA_ITS ---
Acquisition Time: 2024-02-02 07:49:24 Total Exercise Time: 00:02:00 Test Indications: CP Medications: SEE H Protocol: LEXISCAN Max HR: 118 BPM 83% of Pred: 141 BPM Max BP: 120/080 mmHG Max Work Load: 1.0 METS Pharmacological stress test with Lexiscan injection while sitting and kicking her legs, without anginal symptoms, without arrhythmias, with normotensive repsonse to injection, with nondiagnostitc EKGs. Nuclear images pending. Test reviewed with Dr. Mancera. Referred By: Rasheed Guzman Overread By: Lisa Beaver
== END ==
LOC: HO.CARD 07:47
PROVIDERS: PCP Internal Medicine; Visit Provider Internal Medicine
DX: R07.9 Chest pain, unspecified (principal)
CPT/HCPCS: 78452; 93017; A9500; J0280; J2785

== ENCOUNTER → 2024-02-02 07:50 | Outpatient (BNV) | payer MEDICARE, SELFPAY | PROVIDERS: PCP Internal Medicine; Visit Provider Nurse Practitioner | DX: R07.9 Chest pain, unspecified (principal) | CPT/HCPCS: 78452; 93016; 93018 ==

== ENCOUNTER 2024-02-19 16:09 | Outpatient (AMB) | payer MEDICARE, SELFPAY ==
--- NOTE | 2024-02-19 16:10 | A.OFFPC_ITS ---
Intake Visit Reasons: Stress Test Results Allergies Sulfa (Sulfonamide Antibiotics) [SULFA (SULFONAMIDE ANTIBIOTICS)] Allergy (Intermediate, Verified 02/19/24 16:10) ITCHING cholecalciferol (vitamin D3) [Vitamin D3] Allergy (Unknown, Verified 02/19/24 16:10) Unknown Tobacco use date assessed: 12/25/23 Fall risk assessment: No Falls in past year Last assessed Fall Risk: 02/19/24 Dental Screening Dental Screen Date: 02/19/24 Did you have a dental visit in the last 12 months?: Yes Did you have a dental problem in the last 6 months where you did not have access to dental care?: No Was dental information given to patient?: Patient has dentist HPI Stress Test Results HPI Details 78-year-old female with a history of ast hma, breast cancer hypercholesterolemia generalized anxiety disorder having chest pains 12/25/2023 last seen. Patient had nuclear scan which shows no evidence of ischemia or infarction. Patient continues to be short of breath has the Wixela but not able to use the Tudorza. Patient is on montelukast also. [facility] Medical History (Updated 12/25/23 @ 10:20 by Rasheed Guzman MD) Generalized anxiety disorder COVID-19 vaccine series completed Positive colorectal cancer screening using Cologuard test Colon cancer screening Annual physical exam Rotator cuff dysfunction Multiple sclerosis Allergic rhinitis Pulmonary nodule Hypercholesterolemia Vitamin B12 deficiency Vitamin D deficiency Breast cancer Asthma Surgical History (Updated 09/13/21 @ 14:17 by Jeny James RN) History of lumpectomy of left breast H/O colonoscopy Social History (Updated 09/13/21 @ 14:34 by Jeny James RN) Housing: House Patient Tobacco Use Status: Former Tobacco user Quit Date: age 19 Tobacco use type: Cigarette e-Cigarette/Vaping Use: Never Used Second Hand Smoke Exposure: No service: No Current occupational status: retired Cognitive needs: No Hearing needs: No Vision needs: Yes Questionnaire PHQ-9 Over the last 2 weeks, how often have you been bothered by any of the following problems? 1. Little interest or pleasure in doing things: not at all 2. Feeling down, depressed, or hopeless: not at all 3. Trouble falling or staying asleep, or sleeping too much: not at all 4. Feeling tired or having little energy: not at all 5. Poor appetite or overeating: not at all 6. Feeling bad about yourself - or that you are a failure or have let yourself or your family down: not at all 7. Trouble concentrating on things, such as reading the newspaper or watching television: not at all 8. Moving or speaking so slowly that other people could have noticed. Or the opposite - being so fidgety or restless that you have been moving around a lot more than usual: not at all 9. Thoughts that you would be better off or of hurting yourself in some way: not at all Total score: 0 Depression Screening Interpretation: Negative Depression Screening Done: Yes Source: Developed by Drs. John Coy, Maritza Lam, Neri Portillo and colleagues, with an educational paul from [email or web address]. Thrive Questionnaire Date Thrive assessed: 12/25/23 AUDIT C Alcohol Use Questionnaire (AUDIT-C) 1. How often do you have a drink containing alcohol?: Monthly or less 2. How many drinks containing alcohol do you have on a typical day when you are drinking?: 1 or 2 3. How often do you have six or more drinks on one occasion?: Never Total Score: 1 ERMA-7 AMB Questionnaire ERMA-7 Date ERMA - 7 assessed: 12/25/23 Source: Developed by Drs. John Coy, Maritza Lam, Neri Portillo and colleagues, with an educational paul from [email or web address]. Physical exam (Primary Care) Tobacco/Smoking Status: Tobacco use Status Tobacco use date assessed 12/25/23 02/19/24 16:10 Patient Tobacco Use Status Former Tobacco user 02/19/24 16:10 Tobacco use type Cigarette 02/19/24 16:10 e-Cigarette/Vaping Use Never Used 02/19/24 16:10 PHQ-9: PHQ-9 Score PHQ-9: Total score 0 02/19/24 17:57 Depression Screening Interpretation: Negative Thrive Assessment: Date of Thrive Assessment Date Thrive assessed 12/25/23 02/19/24 16:10 Telehealth Telehealth Telehealth Platform: Telephone Location of provider rendering services: practice address Location of patient: address on file Patient Identification confirmed using: Name, : Yes Telehealth method: voice only Patient verbally consented to treatment: Yes Patient verbally consented to billing insurance company: Yes Patient informed of any privacy concerns related to visit: Yes Minutes spent on Phone/Video with Pt.: 15 Assessment and Plan Assessment & Plan (1) Chest pain: Code(s): R07.9 - Chest pain, unspecified Plan: Cardiac workup is negative. Most likely pulmonary (2) Asthma: Comment: has wixela & albuterol inhalers Code(s): J45.909 - Unspecified asthma, uncomplicated Qualifiers: Asthma complication type: uncomplicated Asthma persistence: intermittent Asthma severity: mild Qualified Code(s): J45.20 - Mild intermittent asthma, uncomplicated Plan: Patient continues to have some problems with breathing and so will refer to pulmonary. Not able CT use the Tudorza and so will change to Incruse Orders: Orders XR chest 2V Today J45.20 - Mild intermittent asthma, uncomplicated Referrals Pulmonology Referral J45.20 - Mild intermittent asthma, uncomplicated Medications: New umeclidinium 62.5 mcg/actuation (Incruse Ellipta) 1 inh inhalation BEDTIME 30 ea 3RF J45.20 - Mild intermittent asthma, uncomplicated Discontinued aclidinium bromide 400 mcg/actuation (Tudorza Pressair) Discontinued Reason: Doctor's Order 1 inh inhalation Q12H 1 ea 0RF J45.20 - Mild intermittent asthma, uncomplicated Coding Level of Care Code Tele Est Pt Level 3 (88645) Diagnoses Chest pain R07.9 Mild intermittent asthma without complication J45.20 Asthma complication type: uncomplicated Asthma persistence: intermittent Asthma severity: mild
== END 2024-02-19 17:45 ==
LOC: HO.HMGH 16:09
PROVIDERS: PCP Internal Medicine; Visit Provider Internal Medicine
DX: R07.9 Chest pain, unspecified (principal); J45.20 Mild intermittent asthma, uncomplicated
CPT/HCPCS: 99442

== ENCOUNTER 2024-02-23 10:11 | Outpatient (AMB) | payer MEDICARE, SELFPAY ==
[2024-02-23 10:16] VITALS: BP 110/62; PULSE 93; O2SAT 93; BMI 20.9
--- NOTE | 2024-02-23 10:16 | A.OFFVIS_ITS ---
Vital Signs 02/23/24 10:16 Height 5 ft Weight 107 lb BMI 20.9 BP 110/62 Blood Pressure Location Rt brachial Position Sitting Pulse 93 Pulse Source Pulse Oximeter Pulse Oximetry (%) 93 Oxygen Delivery Method Room Air Intake Visit Reasons: Mild intermittent asthma Allergies Sulfa (Sulfonamide Antibiotics) [SULFA (SULFONAMIDE ANTIBIOTICS)] Allergy (Intermediate, Verified 02/23/24 10:18) ITCHING cholecalciferol (vitamin D3) [Vitamin D3] Allergy (Unknown, Verified 02/23/24 10:18) Unknown HPI HPI Mild intermittent asthma: Details: Teressa is a pleasant 78-year-old female, former minimal smoker with less than 5 pack year history, with underlying asthma, allergic rhinitis, multiple sclerosis, and h/o breast cancer s/p lumpectomy. She was referred by primary care for pulmonary evaluation. She reports asthma diagnosed as an adult, with no need for intubations or hospitalizations related to respiratory distress. She notes over this past winter and up until the last few days poor control of asthma on Wixela and albuterol MDI. She was previously prescribed Turdoza but could not tolerate due to significant dry mouth. She was also on singulair in the past but has d/c this. She reports dyspnea on minimal exertion and occasional wheezing. She denies dyspnea at rest or cough. She recently underwent cardiac evaluation with a stress test that was unremarkable. She reports symptoms are triggered by cold weather and is questioning environmental allergies. She denies any prior allergy testing. She does have cats at home. She reports mother, never smoker, with some underlying respiratory condition otherwise no pertinent family history. She denies any occupational exposures. [facility] Medical History (Updated 02/23/24 @ 12:52 by Joanna Cabello NP) Generalized anxiety disorder COVID-19 vaccine series completed Positive colorectal cancer screening using Cologuard test Colon cancer screening Annual physical exam Rotator cuff dysfunction Multiple sclerosis Allergic rhinitis Pulmonary nodule Hypercholesterolemia Vitamin B12 deficiency Vitamin D deficiency Breast cancer Asthma Surgical History (Updated 09/13/21 @ 14:17 by Jeny James RN) History of lumpectomy of left breast H/O colonoscopy Social History Housing: House Patient Tobacco Use Status: Former Tobacco user Quit Date: age 19 Tobacco use type: Cigarette e-Cigarette/Vaping Use: Never Used Second Hand Smoke Exposure: No service: No Current occupational status: retired Cognitive needs: No Hearing needs: No Vision needs: Yes Review of Systems Const Denies chills, Denies excessive sweating, Denies fever(s), Denies headache(s) and Denies night sweats Eyes Denies dry eyes, Denies irritation and Denies itchy eyes ENT Reports Normal hearing present, Denies headache(s), Denies nasal discharge, Denies post nasal drip and Denies sore throat Card Denies chest pain, Denies chest pain at rest, Denies chest pain with activity, Denies claudication, Denies leg edema, Denies orthopnea and Denies paroxysmal n octurnal dyspnea Resp Denies chest congestion, Denies cough, Denies excessive phlegm production, Denies pain on inspiration, Denies pain with cough and Denies stridor Musc Denies myalgias Neuro Reports Normal hearing present and Denies headache(s) Endo Denies excessive sweating Cody/Lymph Denies lymphadenopathy Aller/Immun Denies itchy eyes and Denies seasonal rhinorrhea Physical Exam Vital Signs: Last Vital Signs Pulse 93 02/23/24 10:16 BP 110/62 02/23/24 10:16 Pulse Ox 93 02/23/24 10:16 Oxygen Delivery Method Room Air 02/23/24 10:16 BMI result Body Mass Index 20.9 Const General: cooperative, healthy appearing, comfortable, no acute distress, well developed and alert Orientation/consciousness: patient oriented x3 Limitations: no limitations HEENT Head: Yes normal to inspection, Yes normocephalic and Yes atraumatic Ears: hearing grossly normal bilaterally and external ears normal Eyes General: appearance normal, both eyes and all related structures Eyelids: Yes eyelids normal Sclerae: sclerae normal EOM: EOMs intact bilaterally Neck Neck: Yes normal visual inspection and Yes no lymphadenopathy Lymphatic: no lymphadenopathy noted Chest Chest palpation & inspection: normal inspection of the chest Resp Other: Bibasilar inspiratory crackles Effort & Inspection: normal respiratory effort, able to speak in complete sentences, no audible wheezes, no cough, no stridor, not tachypneic, no tripod positioning and no use of accessory muscles Cardio Jugular venous distension: no JVD Rate: regular rate Rhythm: regular rhythm Skin Other: warm, dry General skin exam: no rashes or lesions noted Neuro General: patient oriented x3 Cranial nerves: Yes Normal hearing present Cognition (Neuro): normal cognition Gait exam (Neuro): Normal gait present Extrem General: Yes normal to inspection, Yes capillary refill normal, Yes no clubbing, cyanosis or edema and Yes no pedal edema Psych Appearance: grossly normal and well kempt Speech and movement: Normal speech and movement present and Clear speech present Affect: normal affect Attitude: cooperative Thought process: Normal thought process present Thought content: Normal thought content present Insight: Good insight present (Psych) Judgement: Good judgement present (Psych) Office Procedures 6 Minute Walk Time:: 10:45 SPO2 % at rest: 95 Pulse at rest: 102 SPO2 % during excercise: 92 Pulse during excercise: 118 SPO2 % after excercise: 94 Pulse after excercise: 102 Distance in yards walked: 250 Giovanni Score: 4 Performance Observations:: Patient walked unassisted on level ground at a moderate pace. Patient maintained O2 saturation of 92% or greater with pulse rate of 118 or less for the entirety of the walk. No respiratory distress noted. No supplemental oxygen required. [address] - 6 Minute Walk Results Reviewed Results Reviewed: [address] [address] XRay Report Signed Patient: Teressa Cast MR#: [id number] : 1945 Acct:[id number] Age/Sex: 78 / F ADM Date: 10/12/23 Loc: .LAB Attending Dr: Rasheed Guzman MD Ordering Physician: Rasheed Guzman MD Date of Service: 10/12/23 Procedure(s): XR chest 2V Accession Number(s): [id number] cc: Rasheed Guzman MD~ EXAMINATION: XR CHEST 2 VIEWS CLINICAL INFORMATION: Mild intermittent asthma. COMPARISON: Chest radiographs dated 12/12/2016. TECHNIQUE: Frontal and lateral views of the chest were obtained. FINDINGS: The heart, great vessels, pulmonary vasculature and mediastinum are normal. The lungs show no focal infiltrate, effusion or pneumothorax. There is biapical pleural thickening. There is no acute osseous abnormality. There are left axillary surgical clips. There is breast asymmetry, the left breast smaller than the right. XR/XR chest 2V IMPRESSION: No active cardiopulmonary disease. Dictated By: Adrian Kumar MD Signed By: <Electronically signed by Adrian Kumar MD in OV> 10/20/234 DD/ 0820 TD/TT: Transportation Security Officer: DELANEY Assessment & Plan Assessment & Plan (1) Asthma: Comment: has wixela & albuterol inhalers Code(s): J45.909 - Unspecified asthma, uncomplicated Category: Medical Qualifiers: Asthma complication type: uncomplicated Asthma persistence: intermittent Asthma severity: mild Qualified Code(s): J45.20 - Mild int ermittent asthma, uncomplicated (2) Environmental allergies: Code(s): Z91.09 - Other allergy status, other than to drugs and biological substances Category: Medical Plan Teressa's symptoms are likely related to underlying asthma with an allergic component. Will send for PFT and RAST testing to thoroughly evaluate. At this time she would like to continue on current regimen and discuss changing medications after PFT. On exam patient with inspiratory crackles in worsening d yspnea on exertion. Will send for chest CT to evaluate for any interstitial lung disease. Prior CXR revealed biapical pleural thickening. 6MWT performed today and patient does not require supplemental oxygen. All questions were answered and patient is in agreement of plan. Will follow-up to review results. Orders: Orders AMB 6 minute walk Today J45.20 - Mild intermittent asthma, uncomplicated Immunoglobulin E Today Z91.09 - Other allergy status, other than to drugs and biological substances Complete Blood Count Auto Diff Today J45.20 - Mild intermittent asthma, uncomplicated CT chest wo IV con Today R93.89 - Abnormal findings on diagnostic imaging of other specified body structures Resp Allergy Profile Region I Today Z91.09 - Other allergy status, other than to drugs and biological substances PFT pulmonary function test Today J45.20 - Mild intermittent asthma, uncomplicated Coding Level of Care Code New Pt Level 4 (21147) Diagnoses Mild intermittent asthma without complication J45.20 Asthma complication type: uncomplicated Asthma persistence: intermittent Asthma severity: mild Environmental allergies Z91.09 CPT Codes Coding ([id number])
[2024-02-23 11:52] VITALS: PULSE 102; O2SAT 95
== END 2024-02-23 11:28 | disposition home or self-care (01) ==
PROVIDERS: PCP Internal Medicine; Visit Provider Nurse Practitioner Family
DX: J45.20 Mild intermittent asthma, uncomplicated (principal); Z91.09 Other allergy status, other than to drugs and biological substances
CPT/HCPCS: 94618; 99204

== ENCOUNTER → 2024-02-23 10:11 | Outpatient (BNVA) | payer MEDICARE, SELFPAY | PROVIDERS: PCP Internal Medicine; Visit Provider Nurse Practitioner Family | DX: J45.20 Mild intermittent asthma, uncomplicated (principal); Z91.09 Other allergy status, other than to drugs and biological substances | CPT/HCPCS: 94618; 99202 ==

== ENCOUNTER 2024-04-04 12:46 | Outpatient (REF) | payer MEDICARE, SELFPAY ==
--- NOTE | ~2024-04-04 | CT_ITS ---
EXAMINATION: CT CHEST WITHOUT CONTRAST CLINICAL INFORMATION: Abnormal findings on diagnostic imaging of other specified body parts. COMPARISON: Prior chest CT. Correlation with CT abdomen and pelvis 01/26/2017. TECHNIQUE: Multidetector volumetric CT imaging of the chest was done. Axial MIP volume rendering provided. Sagittal and coronal reformatted images were obtained. This CT examination was performed using dose optimization techniques as appropriate, variously including the following: *Automated exposure control *Adjustment of mA and/or kV according to patient size (this includes techniques or standardized protocols for targeted exams where dose is matched to indication/reason for exam; i.e. extremities or head) *Use of iterative reconstruction technique DLP: 70 mGy-cm Please note, due to [facility] technical systems and internal staffing issues, this examination was not available for dictation until 05/07/2024. 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 LUNGS: -Respiratory motion artifact present in the inferior lower lobe regions, limiting sensitivity for detection of subtle findings in this region. -Lungs are somewhat hyperaerated bilaterally. No consolidations or abnormal groundglass opacities. -There is pleural parenchymal scarring in the bilateral apices, as well as the lingular segment and anterior right middle lobe. Mild mosaic attenuation present in the right middle lobe suggesting mild air trapping. -There is relatively diffuse mild bronchial wall thickening including small airways in both lungs, suggesting bronchitis or reactive airways disease. Mild lower lobe bronchiectasis bilaterally. -Several subtle foci of bronchiolar filling defects present bilaterally, suggesting inspissated secretions. -There are scattered calcified 2-3 mm granulomata in both lungs, benign. -3 mm nodule lateral right upper lobe (series 5, image 129). -2 mm nodule posterior right upper lobe (series 5, image 27). -2 mm subpleural nodule superior segment right lower lobe (series 5, image 223). -3 mm nodule inferior right upper lobe (series 5, image 225). -[place]-shaped 4 mm nodule abutting the minor fissure in the inferior right upper lobe, with pleural tag present, (series 5, image 247) probable intrapulmonary lymph node. -Triangular-shaped 4 mm nodule abutting the lateral major fissure superior segment right lower lobe (series 5, image 315), probable intrapulmonary lymph node. -3 mm pleural based nodule lateral major fissure on the right (series 5, image 342, probable intrapulmonary lymph node). -Motion artifact obscures the basilar right lower lobe detail. -3 mm lingular nodule immediately is probably intrabronchial (series 5, image 360). -4 mm subpleural nodule left lower lobe, and demonstrates pleural tag, likely intrapulmonary lymph node (series 5, image 439). This is unchanged from 2017. -5 mm pleural-based nodule left lower lobe laterally (series 5, image 507) is unchanged from 2017 CT abdomen and pelvis. This is benign. PLEURA: There is no pleural effusion. No pleural mass or thickening. MEDIASTINUM: -Normal thyroid. -Aorta is mildly uncoiled and mildly calcified, however there is no aneurysm. -Great vessels branch normally. -No abnormal lymphadenopathy in the mediastinum or hilum. -Esophagus appears normal. -Pulmonary artery is normal in size grossly. -Heart size is normal. No pericardial effusion. CORONARY ARTERY CALCIFICATION: Minimal RCA calcifications. AXILLA/CHEST WALL: Surgical clips left axilla, with evidence of prior lumpectomy left breast laterally. No abnormal lymphadenopathy or masses. UPPER ABDOMEN: Unremarkable. OSSEOUS STRUCTURES: No suspicious lytic or blastic bone lesions. -Mild spinal scoliosis and spinal degenerative changes. -Mild arthritis in the sternoclavicular joints. CT/CT chest wo IV con IMPRESSION: 1. Hyperaerated lung parenchyma, with mild small airway thickening and scattered peripheral tiny foci of endobronchial mucous plugging. Findings suggest asthma/reactive airways disease. Cannot exclude bronchitis. 2. Numerous small scattered pulmonary nodules, as described in the body of the report. The largest is 4 mm left lower lobe. One-year follow-up CT suggested. 3. Scattered calcified granulomata, consistent with prior granulomatous exposure. 4. No abnormal lymphadenopathy. 5. Prior left breast lumpectomy with surgical clips left axilla. 6. Additional axillary findings as discussed in the body of the report. Fleischner guidelines were followed.
== END 2024-04-04 12:47 | disposition home or self-care (01) ==
LOC: HO.CT 12:46
PROVIDERS: PCP Internal Medicine; Visit Provider Nurse Practitioner Family
DX: R93.89 Abnormal findings on diagnostic imaging of other specified body structures (principal)
CPT/HCPCS: 71250

== ENCOUNTER → 2024-04-04 12:48 | Outpatient (BNV) | payer MEDICARE, SELFPAY | PROVIDERS: PCP Internal Medicine; Visit Provider Radiology Diagnostic Radiology | DX: R93.89 Abnormal findings on diagnostic imaging of other specified body structures (principal) | CPT/HCPCS: 71250 ==

== ENCOUNTER 2024-04-22 09:47 | Outpatient (REF) | payer MEDICARE, SELFPAY | END 2024-04-22 09:48 | disposition home or self-care (01) | LOC: HO.RESP 09:47 | PROVIDERS: PCP Internal Medicine; Visit Provider Nurse Practitioner Family | DX: Z13.89 Encounter for screening for other disorder (principal) ==

== ENCOUNTER 2024-05-11 08:53 | Outpatient (REF) | payer MEDICARE, SELFPAY ==
--- NOTE | 2024-05-11 09:00 | PFT_ITS ---
Flows: FEV1: 67 % of predicted at 1.13 L FVC: 108 % of predicted at 2.38 L FEV1/FVC: 47 % Patient refused bronchodilator testing, lung volume maneuvers, or diffusion capacity testing. Impression: Moderate obstructive ventilatory defect. Patient refused bronchodilator testing, lung volume maneuvers, or diffusion capacity testing. MTDD
== END 2024-05-11 08:54 | disposition home or self-care (01) ==
LOC: HO.RESP 08:53
PROVIDERS: PCP Internal Medicine; Visit Provider Nurse Practitioner Family
DX: Z13.89 Encounter for screening for other disorder (principal)

== ENCOUNTER 2024-05-17 09:49 | Outpatient (AMB) | payer MEDICARE, SELFPAY ==
[2024-05-17 10:17] VITALS: BP 118/76; PULSE 74; O2SAT 97; BMI 21.2
--- NOTE | 2024-05-17 10:17 | MHC.OFFVIS ---
Vital Signs 05/17/24 10:17 Height 5 ft Weight 108 lb 6 oz BMI 21.2 BP 118/76 Blood Pressure Location Rt brachial Position Sitting Pulse 74 Pulse Source Pulse Oximeter Pulse Oximetry (%) 97 Oxygen Delivery Method Room Air Intake Visit Reasons: Asthma/CT and PFT Follow Up Allergies Sulfa (Sulfonamide Antibiotics) [SULFA (SULFONAMIDE ANTIBIOTICS)] Allergy (Intermediate, Verified 05/17/24 10:19) ITCHING cholecalciferol (vitamin D3) [Vitamin D3] Allergy (Unknown, Verified 05/17/24 10:19) Unknown HPI HPI Asthma/CT and PFT Follow Up: Details: Teressa is a pleasant 78-year-old female, former minimal smoker with less than 5 pack year history, with underlying asthma, allergic rhinitis, multiple sclerosis, and h/o breast cancer s/p lumpectomy. At baseline she has been well controlled on Wixela and albuterol MDI. She has been using albuterol infrequently and currently denies respiratory symptoms. She denies any visits to urgent care or hospitalizations since the last visit. Today she presents to review PFT and Chest CT. [facility] Medical History (Updated 05/17/24 @ 21:46 by Joanna Cabello NP) Generalized anxiety disorder COVID-19 vaccine series completed Positive colorectal cancer screening using Cologuard test Colon cancer screening Annual physical exam Rotator cuff dysfunction Multiple sclerosis Allergic rhinitis Pulmonary nodule Hypercholesterolemia Vitamin B12 deficiency Vitamin D deficiency Breast cancer Asthma Surgical History (Updated 09/13/21 @ 14:17 by Jeny James RN) History of lumpectomy of left breast H/O colonoscopy Social History Housing: House Patient Tobacco Use Status: Former Tobacco user Tobacco use type: Cigarette e-Cigarette/Vaping Use: Never Used Second Hand Smoke Exposure: No service: No Current occupational status: retired Cognitive needs: No Hearing needs: No Vision needs: Yes Review of Systems Const Denies chills, Denies excessive sweating, Denies fever(s), Denies headache(s) and Denies night sweats Eyes Denies dry eyes, Denies irritation and Denies itchy eyes ENT Reports Normal hearing present and Denies headache(s) Card Denies chest pain, Denies chest pain at rest, Denies chest pain with activity, Denies claudication, Denies leg edema, Denies dyspnea, Denies dyspnea on exertion, Denies orthopnea and Denies paroxysmal nocturnal dyspnea Resp Denies chest congestion, Denies cough, Denies excessive phlegm production, Denies pain on inspiration, Denies pain with cough, Denies dyspnea, Denies dyspnea on exertion, Denies stridor and Denies wheezing Musc Denies myalgias Neuro Reports Normal hearing present and Denies headache(s) Endo Denies excessive sweating Cody/Lymph Denies lymphadenopathy Aller/Immun Denies itchy eyes, Denies seasonal rhinorrhea and Denies wheezing Physical Exam Vital Signs: Last Vital Signs Pulse 74 05/17/24 10:17 BP 118/76 05/17/24 10:17 Pulse Ox 97 05/17/24 10:17 Oxygen Delivery Method Room Air 05/17/24 10:17 BMI result Body Mass Index 21.2 Const General: cooperative, healthy appearing, comfortable, no acute distress, well developed and alert Orientation/consciousness: patient oriented x3 Limitations: no limitations HEENT Head: Yes normal to inspection, Yes normocephalic and Yes atraumatic Ears: hearing grossly normal bilaterally and external ears normal Eyes General: appearance normal, both eyes and all related structures Eyelids: Yes eyelids normal Sclerae: sclerae normal EOM: EOMs intact bilaterally Neck Neck: Yes normal visual inspection and Yes no lymphadenopathy Lymphatic: no lymphadenopathy noted Chest Chest palpation & inspection: normal inspection of the chest Resp Effort & Inspection: normal respiratory effort, able to speak in complete sentences, no audible wheezes, no cough, no stridor, not tachypneic, no tripod positioning and no use of accessory muscles Auscultation: clear to auscultation bilaterally Cardio Jugular venous distension: no JVD Rate: regular rate Rhythm: regular rhythm Skin Other: warm, dry General skin exam: no rashes or lesions noted Neuro General: patient oriented x3 Cranial nerves: Yes Normal hearing present Cognition (Neuro): normal cognition Gait exam (Neuro): Normal gait present Extrem General: Yes normal to inspection, Yes capillary refill normal, Yes no clubbing, cyanosis or edema and Yes no pedal edema Psych Appearance: grossly normal and well kempt Speech and movement: Normal speech and movement present and Clear speech present Affect: normal affect Attitude: cooperative Thought process: Normal thought process present Thought content: Normal thought content present Insight: Good insight present (Psych) Judgement: Good judgement present (Psych) Results Reviewed Results Reviewed: [address] [address] [address] Scan Report Signed Patient: Teressa Cast MR#: [id number] : 1945 Acct:[id number] Age/Sex: 78 / F ADM Date: 04/04/24 Loc: .CT Attending Dr: Joanna Cabello NP Ordering Physician: Joanna Cabello NP Date of Service: 04/04/24 Procedure(s): CT chest wo IV con Accession Number(s): [id number] cc: Rasheed Guzman MD; Joanna Cabello NP~ EXAMINATION: CT CHEST WITHOUT CONTRAST CLINICAL INFORMATION: Abnormal findings on diagnostic imaging of other specified body parts. COMPARISON: Prior chest CT. Correlation with CT abdomen and pelvis 01/26/2017. TECHNIQUE: Multidetector volumetric CT imaging of the chest was done. Axial MIP volume rendering provided. Sagittal and coronal reformatted images were obtained. This CT examination was performed using dose optimization techniques as appropriate, variously including the following: *Automated exposure control *Adjustment of mA and/or kV according to patient size (this includes techniques or standardized protocols for targeted exams where dose is matched to indication/reason for exam; i.e. extremities or head) *Use of iterative reconstruction technique DLP: 70 mGy-cm Please note, due to [facility] technical systems and internal staffing issues, this examination was not available for dictation until 05/07/2024. 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 LUNGS: -Respiratory motion artifact present in the inferior lower lobe regions, limiting sensitivity for detection of subtle findings in this region. -Lungs are somewhat hyperaerated bilaterally. No consolidations or abnormal groundglass opacities. -There is pleural parenchymal scarring in the bilateral apices, as well as the lingular segment and anterior right middle lobe. Mild mosaic attenuation present in the right middle lobe suggesting mild air trapping. -There is relatively diffuse mild bronchial wall thickening including small airways in both lungs, suggesting bronchitis or reactive airways disease. Mild lower lobe bronchiectasis bilaterally. -Several subtle foci of bronchiolar filling defects present bilaterally, suggesting inspissated secretions. -There are scattered calcified 2-3 mm granulomata in both lungs, benign. -3 mm nodule lateral right upper lobe (series 5, image 129). -2 mm nodule posterior right upper lobe (series 5, image 27). -2 mm subpleural nodule superior segment right lower lobe (series 5, image 223). -3 mm nodule inferior right upper lobe (series 5, image 225). -[place]-shaped 4 mm nodule abutting the minor fissure in the inferior right upper lobe, with pleural tag present, (series 5, image 247) probable intrapulmonary lymph node. -Triangular-shaped 4 mm nodule abutting the lateral major fissure superior segment right lower lobe (series 5, image 315), probable intrapulmonary lymph node. -3 mm pleural based nodule lateral major fissure on the right (series 5, image 342, probable intrapulmonary lymph node). -Motion artifact obscures the basilar right lower lobe detail. -3 mm lingular nodule immediately is probably intrabronchial (series 5, image 360). -4 mm subpleural nodule left lower lobe, and demonstrates pleural tag, likely intrapulmonary lymph node (series 5, image 439). This is unchanged from 2017. -5 mm pleural-based nodule left lower lobe laterally (series 5, image 507) is unchanged from 2017 CT abdomen and pelvis. This is benign. PLEURA: There is no pleural effusion. No pleural mass or thickening. MEDIASTINUM: -Normal thyroid. -Aorta is mildly uncoiled and mildly calcified, however there is no aneurysm. -Great vessels branch normally. -No abnormal lymphadenopathy in the mediastinum or hilum. -Esophagus appears normal. -Pulmonary artery is normal in size grossly. -Heart size is normal. No pericardial effusion. CORONARY ARTERY CALCIFICATION: Minimal RCA calcifications. AXILLA/CHEST WALL: Surgical clips left axilla, with evidence of prior lumpectomy left breast laterally. No abnormal lymphadenopathy or masses. UPPER ABDOMEN: Unremarkable. OSSEOUS STRUCTURES: No suspicious lytic or blastic bone lesions. -Mild spinal scoliosis and spinal degenerative changes. -Mild arthritis in the sternoclavicular joints. CT/CT chest wo IV con IMPRESSION: 1. Hyperaerated lung parenchyma, with mild small airway thickening and scattered peripheral tiny foci of endobronchial mucous plugging. Findings suggest asthma/reactive airways disease. Cannot exclude bronchitis. 2. Numerous small scattered pulmonary nodules, as described in the body of the report. The largest is 4 mm left lower lobe. One-year follow-up CT suggested. 3. Scattered calcified granulomata, consistent with prior granulomatous exposure. 4. No abnormal lymphadenopathy. 5. Prior left breast lumpectomy with surgical clips left axilla. 6. Additional axillary findings as discussed in the body of the report. Fleischner guidelines were followed. Dictated By: Elpidio Beaver MD Signed By: <Electronically signed by Elpidio Beaver MD in OV> 05/07/24 0943 DD/ 1304 TD/TT: [employer] Technician: [address] [address] Pulmonary Function Report Signed Patient: Teressa Cast MR#: [id number] : 1945 Acct:[id number] Age/Sex: 78 / F ADM Date: 05/11/24 Loc: HO.RESP Attending Dr: Joanna Cabello SKI EDGE PAINTER Ordering Physician: Date of Service: Procedure(s): Accession Number(s): cc: ~ Flows: FEV1: 67 % of predicted at 1.13 L FVC: 108 % of predicted at 2.38 L FEV1/FVC: 47 % Patient refused bronchodilator testing, lung volume maneuvers, or diffusion capacity testing. Impression: Moderate obstructive ventilatory defect. Patient refused bronchodilator testing, lung volume maneuvers, or diffusion capacity testing. Dictated By: Krish Mixon MD Signed By: <Electronically signed by Krish Mixon MD> 05/13/24 1337 DD/ 1126 TD/TT: 05/11/24 1126 [employer] Technician: Assessment & Plan Assessment & Plan (1) Asthma: Comment: has wixela & albuterol inhalers Code(s): J45.909 - Unspecified asthma, uncomplicated Category: Medical Qualifiers: Asthma severity: mild Asthma persistence: intermittent Asthma complication type: uncomplicated Qualified Code(s): J45.20 - Mild intermittent asthma, uncomplicated (2) Multiple pulmonary nodules: Code(s): R91.8 - Other nonspecific abnormal finding of lung field Category: Medical Plan Reviewed chest CT which revealed multiple pulmonary nodules <4 mm as well as bronchial thickening and small scattered mucous plugs. Will send chest CT in one year to assess stability of nodules. Discussed importance of deep breathing, coughing to clear mucous. Patient was given incentive spirometer in office. Reviewed PFT which revealed moderate obstruction however was unable to complete lung volumes or DLCO due to difficulties. At this time, she notes symptoms are well controlled on current regimen, advised to continue. All questions were answered and patient is in agreement of plan. Will follow up in 6 months or sooner if needed. Orders: Orders CT chest wo IV con 10 Months R91.8 - Other nonspecific abnormal finding of lung field Coding Level of Care Code Est Pt Level 4 (23854) Diagnoses Mild intermittent asthma without complication J45.20 Asthma severity: mild Asthma persistence: intermittent Asthma complication type: uncomplicated Multiple pulmonary nodules R91.8
== END 2024-05-17 10:35 | disposition home or self-care (01) ==
PROVIDERS: PCP Internal Medicine; Visit Provider Nurse Practitioner Family
DX: J45.20 Mild intermittent asthma, uncomplicated (principal); R91.8 Other nonspecific abnormal finding of lung field
CPT/HCPCS: 99214

== ENCOUNTER → 2024-05-17 09:49 | Outpatient (BNVA) | payer MEDICARE, SELFPAY | PROVIDERS: PCP Internal Medicine; Visit Provider Nurse Practitioner Family | DX: J45.20 Mild intermittent asthma, uncomplicated (principal); R91.8 Other nonspecific abnormal finding of lung field | CPT/HCPCS: 99212 ==

== ENCOUNTER 2024-08-16 09:19 | Outpatient (REF) | payer MEDICARE, SELFPAY ==
--- NOTE | ~2024-08-16 | MM_ITS ---
EXAMINATION: MM SCREENING DIGITAL BREAST TOMOSYNTHESIS, BILATERAL CLINICAL INFORMATION: Screening. Asymptomatic. COMPARISON: Mammography: Comparison is made with available priors TECHNIQUE: Digital breast mammography with tomosynthesis is performed in both the craniocaudal and mediolateral oblique views along with computer-aided detection (CAD). FINDINGS: There are scattered areas of fibroglandular density (ACR BI-RADS breast composition Category b). Left post lumpectomy changes. There are no significant masses, abnormal calcifications, or other abnormalities. MM/MM tomosynthesis screening BI IMPRESSION: No mammographic evidence of malignancy. ASSESSMENT: BI-RADS BI-RADS 2 - Benign Findings RECOMMENDATION: Routine annual mammography screening. 1 year F/U This examination should not preclude the clinical evaluation of a suspicious palpable abnormality. This patient's information was entered into a reminder system with a target due date for their next mammogram. Electronically signed by: Shu Salguero DO 08/23/2024 04:23 PM LANA
== END 2024-08-16 09:20 | disposition home or self-care (01) ==
LOC: HO.MAMMO 09:19
PROVIDERS: Visit Provider Internal Medicine
DX: Z12.31 Encounter for screening mammogram for malignant neoplasm of breast (principal)
CPT/HCPCS: 77063; 77067

== ENCOUNTER → 2024-08-16 09:30 | Outpatient (BNV) | payer MEDICARE, SELFPAY | PROVIDERS: Visit Provider Internal Medicine | DX: Z12.31 Encounter for screening mammogram for malignant neoplasm of breast (principal) | CPT/HCPCS: 77063; 77067 ==

== ENCOUNTER 2024-10-10 11:01 | Outpatient (AMB) | payer MEDICARE, SELFPAY ==
--- OUTSIDE RECORDS SUMMARY | 2024-10-10 11:03 | XMS_ITS | Patient Health Record ---
Author Organization [facility] Address [address] [place] [address] Care Team Providers Care Manpower Development Advisor Name Role Phone Rasheed Guzman MD Primary Care Provider John Delong [phone] ALLERGIES Allergen (clinical drug ingredient) Drug/Non Drug Allergy documented on EMR Reaction Allergy Type Onset Date Status Substance with sulfonamide structure and antibacterial mechanism of action (substance) Sulfa Antibiotics Unknown Drug Allergy Active REASON FOR REFERRAL No Information MEDICATIONS Medication SIG (Take, Route, Frequency, Duration) Notes Start Date End Date Status Multivitamin - 1 tablet Orally Once a day for 30 day(s) Active Vitamin D 50 MCG (2000 UT) 1 tablet Oral ly Once a day for 30 day(s) Active Wixela Inhub 250-50 MCG/DOSE INHALE ONE PUFF BY MOUTH TWICE A DAY Inhalation for 30 Active Albuterol Sulfate HFA 108 (90 Base) MCG/ACT INHALE 2 PUFFS INTO THELUNGS EVERY 4 TO 6 HOURS NEEDED FOR BRONCHOSPASM Inhalation for 16 Active Latanoprost 0.005 % INSTILL 1 DROP IN TH E LEFT EYE AT BEDTIME (SEPARATE BY AT LEAST 10 MINUTES FROM OTHER INTRAOCULAR PRESSURE REDUCING OPHTHALMIC DRUGS). Ophthalmic for 120 Active IMMUNIZATIONS Vaccine Route Administration Date Status Comme nts Influenza Unknown 07/16/2021 Administered SOCIAL HISTORY Tobacco Use: Social History Observation Description Date Details (start date - stop date) Former Smoker NA - NA Sex Assigned At : Social History Observation Description Sex Assigned At Unknown Tobacco Use/Smoking Question Answer Notes Patient is a former smoker How long has it been since you last smoked? > 10 years Alcohol Screen Question Answer Notes Did you have a drink contain ing alcohol in the past year? Yes How often did you have a dri nk containing alcohol in the past year? Never (0 point) How many drinks did you have on a typical day when you were drinking in the past year? 1 or 2 drinks (0 point) How often did you have 6 or more drinks on one occasion in the past year? Never (0 point) Points 0 Interpretation Negative PROBLEMS Problem Type ICD Code Onset Dates Problem Status W/U Status Risk SNOMED Code Notes Problem Positive colorectal cancer screening using Cologuard test (R19.5) Active confirmed 155064427 Problem Diverticulosis of colon (K57.30) Active confirmed Diverticulosi s of colon (509320898) PLAN OF TREATMENT Future Test Test Name Order Date COLONOSCOPY 09/02/2021 Insurance Providers Payer Name Payer Address Payer Phone Subscriber Number Group Number Insured Name Patient Relationship to Insured Coverage Start Date Coverage End Date [facility] [address] [place] [phone] [id number] SATNAM GRECO Self - patient is the insured MEDICAL (GENERAL) HISTORY Medical History History ICD Code Denies [place],DM,CVA,renal disease Neg. screening colonoscopy in 09/2010 ex cept for a hyperplastic polyp Asthma Left breast cancer > 20 years ago-lumpec kim, XRT, Chemo Multiple sclerosis-stable Surgical History Surgery Date(Month/Year) left lumpectomy for breast cancer 1989
--- NOTE | 2024-10-10 11:08 | MHC.PC.OV ---
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: No Accompanied by: Self / Same As Patient Allergies Sulfa (Sulfonamide Antibiotics) [SULFA (SULFONAMIDE ANTIBIOTICS)] Allergy (Intermediate, Verified 10/10/24 11:11) ITCHING cholecalciferol (vitamin D3) [Vitamin D3] Allergy (Unknown, Verified 10/10/24 11:11) Unknown Tobacco use date assessed: 12/25/23 Fall risk assessment: No Falls in past year Last assessed Fall Risk: 10/10/24 Dental Screening Dental Screen Date: 10/10/24 Did you have a dental visit in the last 12 months?: Yes Did you have a dental problem in the last 6 months where you did not have access to dental care?: No Was dental information given to patient?: Patient has dentist HPI asthma HPI Details The patient is an 79-year-old female presenting with pulmonary nodules. She reports not keeping her last appointment with the molder vacuum and was informed about the presence of numerous small scattered pulmonary nodules, with the largest being 4 mm on the left side. No symptoms have been reported, and the nodules have not grown since the last CAT scan performed in March. Monitoring with another CAT scan is planned for March of the following year. The patient also has hypercholesterolemia with LDL levels previously recorded at 154 mg/dL. Despite a self-reported healthy diet, cholesterol levels are increasing yearly. There has been no specific diet modification reported yet. Additionally, the patient has a history of osteoporosis and is taking Relaxafine, noted for both breast and bone health. A repeat bone density scan is overdue and is scheduled. Regarding asthma management, the patient reports using Albuterol twice daily and Wixella bid. She mentions the use of these medications but is unsure if she ever received a prescription for Incruse inhaler, which was discussed for better disease control. The patient describes nocturnal discomfort in the right foot resembling restless leg syndrome without specific pain on palpation or during daytime activities. She relates this possible discomfort to her MS but denies pins and needles sensations. Her prior medical history also notes a Vitamin B12 deficiency which will be followed up with blood testing. [facility] Medical History (Updated 10/10/24 @ 11:46 by Rasheed Guzman MD) Generalized anxiety disorder COVID-19 vaccine series completed Positive colorectal cancer screening using Cologuard test Colon cancer screening Annual physical exam Rotator cuff dysfunction Multiple sclerosis Allergic rhinitis Pulmonary nodule Hypercholesterolemia Vitamin B12 deficiency Vitamin D deficiency Breast cancer Asthma Surgical History History of lumpectomy of left breast H/O colonoscopy Social History (Updated 10/10/24 @ 11:09 by ROSA Flower) Housing: House Alcohol intake: current Alcohol intake frequency: holidays/special occasions only Patient Tobacco Use Status: Former Tobacco user Tobacco use type: Cigarette e-Cigarette/Vaping Use: Never Used Second Hand Smoke Exposure: No service: No Current occupational status: retired Cognitive needs: No Hearing needs: No Vision needs: Yes Questionnaire PHQ-9 Over the last 2 weeks, how often have you been bothered by any of the following problems? 1. Little interest or pleasure in doing things: not at all 2. Feeling down, depressed, or hopeless: not at all 3. Trouble falling or staying asleep, or sleeping too much: not at all 4. Feeling tired or having little energy: not at all 5. Poor appetite or overeating: not at all 6. Feeling bad about yourself - or that you are a failure or have let yourself or your family down: not at all 7. Trouble concentrating on things, such as reading the newspaper or watching television: not at all 8. Moving or speaking so slowly that other people could have noticed. Or the opposite - being so fidgety or restless that you have been moving around a lot more than usual: not at all 9. Thoughts that you would be better off or of hurting yourself in some way: not at all Total score: 0 Depression Screening Interpretation: Negative Depression Screening Done: Yes Source: Developed by Drs. John Coy, Maritza Lam, Neri Portillo and colleagues, with an educational paul from [employer]. Thrive Questionnaire Date Thrive assessed: 10/10/24 I am a: Patient What is your living situation today?: I have a steady place to live Within the past 12 months, did the food you bought not last and you didn't have the money to get more?: Never true Within the past 12 months, did you worry whether your food would run out before you got money to buy more?: Never true Do you have trouble paying for medicines?: No Do you have trouble getting transportation to medical appointments?: No Do you have trouble paying your heating and electricity bill?: No Do you have trouble taking care of your child, family member or friend?: No Do you have trouble with day-to-day activities such as bathing, preparing meals, shopping, managing finances, etc.?: No Are you currently unemployed and looking for a job?: No Are you interested in more education?: No Please select the resources that you would like help with: None Currently or been in a relationship where the following occur: No concerns reported THRIVE Score: 0 ERMA-7 AMB Questionnaire ERMA-7 Date ERMA - 7 assessed: 10/10/24 Feeling nervous, anxious, or on edge: 0 = Not at all Not being able to stop or control worryin = Not at all Worrying too much about different things: 0 = Not at all Trouble relaxin = Not at all Being so restless that it is hard to sit still: 0 = Not at all Becoming easily annoyed or irritable: 0 = Not at all Feeling afraid as if something awful might happen: 0 = Not at all Total ERMA-7 score (0-4 normal; 5-9 mild; 10-14 moderate; 15-21 severe): 0 Source: Developed by Drs. John Coy, Maritza Lam, Neri Portillo and colleagues, with an educational paul from [employer]. Physical exam (Primary Care) Vital Signs: Last Vital Signs Pulse 74 10/10/24 11:09 BP 126/80 10/10/24 11:09 Pulse Ox 95 10/10/24 11:09 Oxygen Delivery Method Room Air 10/10/24 11:09 BMI result Body Mass Index 21.9 Tobacco/Smoking Status: Tobacco use Status Tobacco use date assessed 12/25/23 10/10/24 11:15 Patient Tobacco Use Status Former Tobacco user 10/10/24 11:15 Tobacco use type Cigarette 10/10/24 11:15 e-Cigarette/Vaping Use Never Used 10/10/24 11:15 PHQ-9: PHQ-9 Score PHQ-9: Total score 0 10/10/24 11:30 Depression Screening Interpretation: Negative Thrive Assessment: Date of Thrive Assessment Date Thrive assessed 10/10/24 10/10/24 11:15 Currently or been in a relationship where the following occur: No concerns reported Const General: alert; No acute distress Eyes Conjunctivae: conjunctivae normal Resp Auscultation: clear to auscultation bilaterally Cardio Rate: regular rate Rhythm: regular rhythm GI Inspection: Yes normal to inspection Extrem General: Yes normal to inspection and No edema Coding Level of Care Code Est Pt Level 4 (90720) Complex EM visit Add On G2211 Diagnoses Multiple pulmonary nodules R91.8 Mild intermittent asthma without complication J45.20 Asthma complication type: uncomplicated Asthma persistence: intermittent Asthma severity: mild Hypercholesterolemia E78.00 Malignant neoplasm of left female breast, unspecified estrogen receptor status, unspecified site of breast C50.912 Breast location: unspecified site of breast Estrogen receptor status: unspecified Laterality: left Patient sex: female Osteoporosis, unspecified osteoporosis type, unspecified pathological fracture presence M81.0 Osteoporosis type: unspecified Presence of current pathological fracture: unspecified ERMA (generalized anxiety disorder) F41.1 Restless leg syndrome G25.81 Assessment & Plan Assessment & Plan (1) Multiple pulmonary nodules: Comment: 03/2024 Code(s): R91.8 - Other nonspecific abnormal finding of lung field Category: Medical Plan: Has met with Pulmonary and advised to retest CT scan in 1 year. (2) Asthma: Comment: has wixela & albuterol inhalers Code(s): J45.909 - Unspecified asthma, uncomplicated Category: Medical Qualifiers: Asthma complication type: uncomplicated Asthma persistence: intermittent Asthma severity: mild Qualified Code(s): J45.20 - Mild intermittent asthma, uncomplicated Plan: Continuing with albuterol inhaler as well as Wixela and Incruse for controller (3) Hypercholesterolemia: Code(s): E78.00 - Pure hypercholesterolemia, unspecified Category: Medical Plan: Avoid fried foods, chicken skin, eggs, butter margarine, pastries and meat. Be it pork or beef they have a lot of cholesterol LDL goal of less than 130 and triglyceride of less than 150 (4) Breast cancer: Comment: 2000 left lumpectomy chemotherapy radiation Code(s): C50.919 - Malignant neoplasm of unspecified site of unspecified female breast Category: Medical Qualifiers: Breast location: unspecified site of breast Estrogen receptor status: unspecified Laterality: left Patient sex: female Qualified Code(s): C50.912 - Malignant neoplasm of unspecified site of left female breast Plan: Mammogram up-to-date (5) Osteoporosis: Comment: July 2021 Code(s): M81.0 - Age-related osteoporosis without current pathological fracture Category: Medical Qualifiers: Osteoporosis type: unspecified Presence of current pathological fracture: unspecified Qualified Code(s): M81.0 - Age-related osteoporosis without current pathological fracture Plan: Patient is reminded about bone density (6) ERMA (generalized anxiety disorder): Code(s): F41.1 - Generalized anxiety disorder Category: Medical Plan: Stable (7) Restless leg syndrome: Code(s): G25.81 - Restless legs syndrome Category: Medical Plan - A follow-up CT scan is scheduled to monitor pulmonary nodules with a repeat scan in March. No intervention required until change in size noted. - A request has been made for a bone density scan to assess current osteoporosis status. - Prescribed Incruse inhaler once a day to reduce reliance on Albuterol and improve asthma symptom control. - Scheduled blood work to assess Vitamin levels and lipid profile. - Reviewed dietary habits and recommended reduction in cholesterol intake to manage hypercholesterolemia. - Initiated medication for management of nocturnal leg discomfort potentially due to restless leg syndrome, starting with a low-dose to assess efficacy. - Advised reducing fluid intake 2-3 hours before bedtime to manage nocturia. - Discussed and advised on the annual flu vaccine due to the current season and additional viral risks. Orders: Orders Complete Blood Count Auto Diff Today E78.00 - Pure hypercholesterolemia, unspecified Comprehensive Met. Panel Today E78.00 - Pure hypercholesterolemia, unspecified Lipid Panel Today E78.00 - Pure hypercholesterolemia, unspecified XR DEXA axial skeleton Today M81.0 - Age-related osteoporosis without current pathological fracture Free T4 (Free Thyroxine) Today E78.00 - Pure hypercholesterolemia, unspecified Thyroid Stimulating Hormone Today E78.00 - Pure hypercholesterolemia, unspecified Vitamin B12 and Folate Today E78.00 - Pure hypercholesterolemia, unspecified Vitamin D 25-OH Total Today E78.00 - Pure hypercholesterolemia, unspecified Medications: New ropinirole administer 1-3 hours before bedtime 0.25 mg PO BEDTIME 30 tabs 2RF G25.81 - Restless legs syndrome Refilled umeclidinium 62.5 mcg/actuation (Incruse Ellipta) 1 inh inhalation BEDTIME 30 ea 3RF J45.20 - Mild intermittent asthma, uncomplicated
[2024-10-10 11:09] VITALS: BP 126/80; PULSE 74; O2SAT 95; BMI 21.9
== END 2024-10-10 11:50 | disposition home or self-care (01) ==
PROVIDERS: PCP Internal Medicine; Visit Provider Internal Medicine
DX: R91.8 Other nonspecific abnormal finding of lung field (principal); J45.20 Mild intermittent asthma, uncomplicated; E78.00 Pure hypercholesterolemia, unspecified; C50.912 Malignant neoplasm of unspecified site of left female breast; M81.0 Age-related osteoporosis without current pathological fracture; F41.1 Generalized anxiety disorder; G25.81 Restless legs syndrome

== ENCOUNTER → 2024-10-10 11:01 | Outpatient (BNVA) | payer MEDICARE, SELFPAY | PROVIDERS: PCP Internal Medicine; Visit Provider Internal Medicine | DX: J45.20 Mild intermittent asthma, uncomplicated (principal); R91.8 Other nonspecific abnormal finding of lung field; E78.00 Pure hypercholesterolemia, unspecified; M81.0 Age-related osteoporosis without current pathological fracture; F41.1 Generalized anxiety disorder; G25.81 Restless legs syndrome; C50.912 Malignant neoplasm of unspecified site of left female breast; Z79.899 Other long term (current) drug therapy | CPT/HCPCS: 96127; 99212 ==

== ENCOUNTER 2024-10-18 07:30 | Outpatient (REF) | payer MEDICARE, SELFPAY ==
[2024-10-18 07:48] LABS: MANUAL DIFF FLAG NO
[2024-10-18 08:05] LABS: Basophils Absolute Auto 0.1 X10*3/uL (0.0-0.2); Basophils Percent Auto 1.4 % (0-2); Eosinophils Absolute Auto 0.3 X10*3/uL (0.0-0.4); Hematocrit 42.2 % (37.0-47.0); Hemoglobin 13.9 g/dl (12.0-16.0); Imm Gran Abs Auto 0.02 X10*3/uL (0.00-0.03); Imm Gran Pct Auto 0.4 % (0.0-0.4); Lymphocytes Absolute Auto 1.1 X10*3/uL (1.2-4.9); Lymphocytes Percent Auto 21.8 % (20-40); Mean Corpuscular HGB Conc 32.9 g/dl (31.0-35.0); Mean Platelet Volume 10.5 fL (9.4-12.3); Monocytes Absolute Auto 0.4 X10*3/uL (0.1-1.2); Monocytes Percent Auto 7.9 % (2-11); Neutrophils Absolute Auto 3.1 x10*3/uL (2.0-8.3); Neutrophils Percent Auto 62.5 % (45-73); Platelet Count 176 X10*3/uL (160-400); Red Blood Count 4.35 X10*6/uL (4.20-5.50); Red Cell Distribution Width 12.8 % (11.0-16.0)
[2024-10-18 09:09] LABS: Alanine Aminotransferase 21 U/L (0-31); Albumin Level 4.3 g/dL (3.5-5.0); Alkaline Phosphatase 97 U/L (39-117); Anion Gap 13 (12-20); Aspartate Amino Transferase 20 U/L (5-31); Bilirubin Total 0.5 mg/dL (0.0-1.0); Blood Urea Nitrogen 13 mg/dL (9-16); Calcium 8.7 mg/dL (8.4-10.2); Carbon Dioxide 28 mmol/L (22-29); Chloride 105 mmol/L (96-108); Cholesterol 245 mg/dL (<200); Estimated Glomerular Filt Rate > 60; Glucose Random 90 mg/dL (60-115); HDL Cholesterol 86 mg/dL (>40); LDL Cholesterol Calculated 145 mg/dL (<100); Sodium 142 mmol/L (135-145); Total Protein 7.3 g/dL (6.5-8.0); Triglycerides 72 mg/dL (<150)
[2024-10-18 09:29] LABS: Free T4 (Free Thyroxine) 0.85 ng/dL (0.71-1.85); Vitamin D 25-OH Total 13.7 ng/mL (>30)
[2024-10-18 09:35] LABS: Folate 6.8 ng/mL (> or = 4.0); Vitamin B12 223 pg/mL (200-900)
[2024-10-24 11:51] LABS: Immunoglobulin E 1165 (H)
[2024-10-24 11:52] LABS: Class Cat Dander 6; Class Cockroach 1; Class Dermatophagoides farinae 1; Class Dog Dander 4; Class Mouse Urine Protein 2; D002 - IgE D farinae 0.50 (H); E001 - IgE Cat Dander >100 (H); E005 - IgE Dog Dander 18.30 (H); E072-IgE Mouse Urine 1.42 (H); I006-IgE Cockroach, German 0.46 (H)
[2024-10-24 11:53] LABS: Class Alternaria alternata 0; Class Aspergillus fumigatus 0/1; Class Cladosporium herbarum 0; Class Mountain Cedar 0/1; Class Oak 0; Class Timothy Grass 0; G006 - IgE Timothy Grass <0.10; M002 - IgE Cladosporium herbar <0.10; M003 - IgE Aspergillus fumigat 0.19 (H); M006 - IgE Alternaria alternat <0.10; T006 - IgE Cedar, Mountain 0.12 (H); T007 - IgE Oak, White <0.10
[2024-10-24 11:54] LABS: Class Common Ragweed 0/1; Class Cottonwood 0/1; Class Mugwort 0; Class Sycamore 0/1; Class Walnut Tree 0/1; Class White Ash 0; Class White Mulberry 0; T010 - IgE Walnut 0.14 (H); T011 - IgE Maple Leaf Sycamore 0.13 (H); T014 - IgE Cottonwood 0.11 (H); T015 - IgE Ash, White <0.10; T070 - IgE White Mulberry <0.10; W001 - IgE Ragweed, Short 0.17 (H); W006 - IgE Mugwort <0.10
[2024-10-24 11:55] LABS: Class Bermuda Grass 0/1; Class Birch 0; Class Derm. pterony 2; Class Penicillium crysogenum 0; D001 IgE D pteronyssinus 0.78 (H); G002 IgE Bermuda Grass 0.12 (H); M001 IgE Penicillium chrysogen <0.10; T003 IgE Common Silver Birch <0.10
[2024-10-24 11:56] LABS: Class Elm 0/1; Class Maple Box Elder 0/1; Class Rough Pigweed 0; Class Sheep Sorrel 0; T001 IgE Maple/Box Elder 0.12 (H); T008 IgE Elm, American 0.10 (H); W014 IgE Pigweed, Common <0.10; W018 IgE Sheep Sorrel <0.10
== END 2024-10-18 07:31 | disposition home or self-care (01) ==
LOC: HO.LAB 07:30
PROVIDERS: Nurse Practitioner Family; PCP Internal Medicine; Visit Provider Internal Medicine
DX: E78.00 Pure hypercholesterolemia, unspecified (principal); Z91.09 Other allergy status, other than to drugs and biological substances
CPT/HCPCS: 36415; 80053; 80061; 82306; 82607; 82746; 82785; 84439; 84443; 85025; 86003

== ENCOUNTER 2024-11-22 09:42 | Outpatient (REF) | payer MEDICARE, SELFPAY | END 2024-11-22 09:43 | disposition home or self-care (01) | LOC: HO.MAMMO 09:42 | PROVIDERS: PCP Internal Medicine; Visit Provider Internal Medicine | DX: M81.0 Age-related osteoporosis without current pathological fracture (principal) ==

== ENCOUNTER → 2024-11-22 10:00 | Outpatient (BNV) | payer MEDICARE, SELFPAY | PROVIDERS: PCP Internal Medicine; Visit Provider Radiology Diagnostic Radiology | DX: E28.39 Other primary ovarian failure (principal) | CPT/HCPCS: 77080 ==

== ENCOUNTER 2025-01-13 09:18 | Outpatient (AMB) | payer MEDICARE, SELFPAY ==
[2025-01-13 09:20] VITALS: BP 106/60; PULSE 99; TEMP 36.5; O2SAT 94; BMI 21.6
--- NOTE | 2025-01-13 09:20 | MHC.PC.OV ---
Vital Signs 01/13/25 09:20 Height 5 ft Weight 110 lb 8 oz BMI 21.6 BP 106/60 Blood Pressure Location Lt brachial Position Sitting Pulse 99 Pulse Source Pulse Oximeter Temp 97.7 F Temp Source Temporal Artery Scan Pulse Oximetry (%) 94 Oxygen Delivery Method Room Air Intake Visit Reasons: pulmonary nodule, asthma - see comments Allergies Sulfa (Sulfonamide Antibiotics) [SULFA (SULFONAMIDE ANTIBIOTICS)] Allergy (Intermediate, Verified 01/13/25 09:22) ITCHING cholecalciferol (vitamin D3) [Vitamin D3] Allergy (Unknown, Verified 01/13/25 09:22) Unknown Medication List - Last Reconciled 01/13/25 by Rasheed Guzman MD albuterol sulfate 90 mcg/actuation (Ventolin HFA) 2 puffs inhalation Q4-6H PRN fluticasone propion-salmeterol 250-50 mcg/dose (Wixela Inhub) 1 inh inhalation BID multivitamin 1 tab PO DAILY Tobacco use date assessed: 01/13/25 Fall risk assessment: No Falls in past year Last assessed Fall Risk: 01/13/25 Dental Screening Dental Screen Date: 01/13/25 Did you have a dental visit in the last 12 months?: Yes Did you have a dental problem in the last 6 months where you did not have access to dental care?: No Was dental information given to patient?: Patient has dentist [facility] Medical History (Updated 01/13/25 @ 09:40 by Rasheed Guzman MD) Generalized anxiety disorder COVID-19 vaccine series completed Positive colorectal cancer screening using Cologuard test Colon cancer screening Annual physical exam Rotator cuff dysfunction Multiple sclerosis Allergic rhinitis Pulmonary nodule Hypercholesterolemia Vitamin B12 deficiency Vitamin D deficiency Breast cancer Asthma Surgical History History of lumpectomy of left breast H/O colonoscopy Social History Housing: House Alcohol intake: current Alcohol intake frequency: holidays/special occasions only Patient Tobacco Use Status: Former Tobacco user Tobacco use type: Cigarette e-Cigarette/Vaping Use: Never Used Second Hand Smoke Exposure: No service: No Current occupational status: retired Cognitive needs: No Hearing needs: No Vision needs: Yes Questionnaire PHQ-9 Over the last 2 weeks, how often have you been bothered by any of the following problems? 1. Little interest or pleasure in doing things: not at all 2. Feeling down, depressed, or hopeless: not at all 3. Trouble falling or staying asleep, or sleeping too much: not at all 4. Feeling tired or having little energy: not at all 5. Poor appetite or overeating: not at all 6. Feeling bad about yourself - or that you are a failure or have let yourself or your family down: not at all 7. Trouble concentrating on things, such as reading the newspaper or watching television: not at all 8. Moving or speaking so slowly that other people could have noticed. Or the opposite - being so fidgety or restless that you have been moving around a lot more than usual: not at all 9. Thoughts that you would be better off or of hurting yourself in some way: not at all Total score: 0 Depression Screening Interpretation: Negative Depression Screening Done: Yes 02460 - PHQ-9 Billing: Yes Source: Developed by Drs. John Coy, Maritza Lam, Neri Portillo and colleagues, with an educational paul from [employer]. Thrive Questionnaire Date Thrive assessed: 01/13/25 I am a: Patient What is your living situation today?: I have a steady place to live Within the past 12 months, did the food you bought not last and you didn't have the money to get more?: Never true Within the past 12 months, did you worry whether your food would run out before you got money to buy more?: Never true Do you have trouble paying for medicines?: No Do you have trouble getting transportation to medical appointments?: No Do you have trouble paying your heating and electricity bill?: No Do you have trouble taking care of your child, family member or friend?: No Do you have trouble with day-to-day activities such as bathing, preparing meals, shopping, managing finances, etc.?: No Are you currently unemployed and looking for a job?: No Are you interested in more education?: No Please select the resources that you would like help with: None Currently or been in a relationship where the following occur: No concerns reported THRIVE Score: 0 AUDIT C Alcohol Use Questionnaire (AUDIT-C) 1. How often do you have a drink containing alcohol?: Monthly or less 2. How many drinks containing alcohol do you have on a typical day when you are drinking?: 1 or 2 3. How often do you have six or more drinks on one occasion?: Never Total Score: 1 ERMA-7 AMB Questionnaire ERMA-7 Date ERMA - 7 assessed: 01/13/25 Feeling nervous, anxious, or on edge: 0 = Not at all Not being able to stop or control worryin = Not at all Worrying too much about different things: 0 = Not at all Trouble relaxin = Not at all Being so restless that it is hard to sit still: 0 = Not at all Becoming easily annoyed or irritable: 0 = Not at all Feeling afraid as if something awful might happen: 0 = Not at all Total ERMA-7 score (0-4 normal; 5-9 mild; 10-14 moderate; 15-21 severe): 0 Source: Developed by Drs. John Coy, Maritza Lam, Neri Portillo and colleagues, with an educational paul from [employer]. ERMA-7 Assessment Billing ERMA-7 Assessment Tool: ERMA-7 Assessment 70219 Physical exam (Primary Care) Vital Signs: Last Vital Signs Temp 97.7 F 01/13/25 09:20 Pulse 99 01/13/25 09:20 BP 106/60 01/13/25 09:20 Pulse Ox 94 01/13/25 09:20 Oxygen Delivery Method Room Air 01/13/25 09:20 BMI result Body Mass Index 21.6 Tobacco/Smoking Status: Tobacco use Status Tobacco use date assessed 01/13/25 01/13/25 09:24 Patient Tobacco Use Status Former Tobacco user 01/13/25 09:24 Tobacco use type Cigarette 01/13/25 09:24 e-Cigarette/Vaping Use Never Used 01/13/25 09:24 PHQ-9: PHQ-9 Score PHQ-9: Total score 0 01/13/25 09:24 Depression Screening Interpretation: Negative Thrive Assessment: Date of Thrive Assessment Date Thrive assessed 01/13/25 01/13/25 09:24 Currently or been in a relationship where the following occur: No concerns reported Const General: alert; No acute distress Eyes Conjunctivae: conjunctivae normal Resp Auscultation: clear to auscultation bilaterally Cardio Rate: regular rate Rhythm: regular rhythm GI Inspection: Yes normal to inspection Extrem General: Yes normal to inspection and No edema Coding Level of Care Code Est Pt Level 4 (44281) Diagnoses Malignant neoplasm of left female breast, unspecified estrogen receptor status, unspecified site of breast C50.912 Breast location: unspecified site of breast Estrogen receptor status: unspecified Patient sex: female Laterality: left Hypercholesterolemia E78.00 Mild intermittent asthma without complication J45.20 Asthma severity: mild Asthma persistence: intermittent Asthma complication type: uncomplicated ERMA (generalized anxiety disorder) F41.1 Multiple pulmonary nodules R91.8 Osteoporosis, unspecified osteoporosis type, unspecified pathological fracture presence M81.0 Osteoporosis type: unspecified Presence of current pathological fracture: unspecified Vitamin B12 deficiency E53.8 Vitamin D deficiency E55.9 Additional Codes ERMA-7 Assessment Billing - ERMA-7 Assessment Tool: ERMA-7 Assessment 27010 ([id number]) PHQ-9 - 50141 - PHQ-9 Billing: Yes ([id number]) Assessment & Plan Assessment & Plan (1) Breast cancer: Comment: 2000 left lumpectomy chemotherapy radiation Code(s): C50.919 - Malignant neoplasm of unspecified site of unspecified female breast Category: Medical Qualifiers: Breast location: unspecified site of breast Estrogen receptor status: unspecified Patient sex: female Laterality: left Qualified Code(s): C50.912 - Malignant neoplasm of unspecified site of left female breast Plan: patient is up-to-date with mammogram (2) Hypercholesterolemia: Code(s): E78.00 - Pure hypercholesterolemia, unspecified Category: Medical Plan: Avoid fried foods, chicken skin, eggs, butter margarine, pastries and meat. Be it pork or beef they have a lot of cholesterol LDL goal of less than 130 and triglyceride of less than 150 (3) Asthma: Comment: has wixela & albuterol inhalers Code(s): J45.909 - Unspecified asthma, uncomplicated Category: Medical Qualifiers: Asthma severity: mild Asthma persistence: intermittent Asthma complication type: uncomplicated Qualified Code(s): J45.20 - Mild intermittent asthma, uncomplicated Plan: patient on montelukast Wixela and Ventolin and Spiriva (4) ERMA (generalized anxiety disorder): Code(s): F41.1 - Generalized anxiety disorder Category: Medical Plan: continue with present medication (5) Multiple pulmonary nodules: Comment: 03/2024 Code(s): R91.8 - Other nonspecific abnormal finding of lung field Category: Medical Plan: patient is going to retest cat scan in March (6) Osteoporosis: Comment: July 2021, November 2024 Code(s): M81.0 - Age-related osteoporosis without current pathological fracture Category: Medical Qualifiers: Osteoporosis type: unspecified Presence of current pathological fracture: unspecified Qualified Code(s): M81.0 - Age-related osteoporosis without current pathological fracture Plan: patient is up-to-date with bone density on raloxifene spine has decreased 5% and hip no change (7) Vitamin B12 deficiency: Code(s): E53.8 - Deficiency of other specified B group vitamins Category: Medical (8) Vitamin D deficiency: Code(s): E55.9 - Vitamin D deficiency, unspecified Category: Medical Plan History of Present Illness The patient is an 79-year-old female presenting for follow-up on her chronic medical conditions. Asthma management involves the use of maintenance inhalers Wixela and as-needed albuterol; she experiences episodic shortness of breath up to four times weekly. Her medications are adjusted due to past issues with montelukast ineffectiveness. Her cholesterol, previously noted to be elevated, is currently at 145 mg/dL. She underwent a lumpectomy for breast cancer in 2000, and her bone density tests show a reduction in spinal density; however, hip measurements remain stable. She exhibits significant vitamin deficiencies, including vitamin D at 13.7 ng/mL and vitamin B12 at 223 pg/mL. Management of generalized anxiety disorder currently does not include alprazolam. The patient?s mammogram screening is recent, while pulmonary nodules require upcoming surveillance with a scheduled CAT scan. Last comprehensive evaluation was in September 2024, confirming the need for ongoing observation of these conditions. Health Maintenance - Mammogram up to date as of August 2024. - Colonoscopy last performed in September 2021. - Bone density test with a noted 5% decrease in spinal density. - Recommends maintaining a cholesterol level with an LDL goal of less than 130 mg/dL and triglyceride goal of less than 150 mg/dL. - Encouragement of adequate calcium and vitamin D intake for bone health, given current deficiencies. - Encouragement of a healthy diet and regular physical activity for osteoporosis management. - Pending follow-up CAT scan for pulmonary nodules in November 2024. - Discussion regarding vitamin D and B12 supplementation. Social History - Active participant in community activities, such as [employer]. - Regular travel to [place] with family. - Preferences against medication for anxiety unless necessary. Review of Systems - Respiratory: Reports shortness of breath requiring albuterol use two to four times weekly. - Neurologic: Denies current anxiety medication use as not needed at present. - Musculoskeletal: Denies fracture or bone pain but history of osteoporosis noted. - Nutritional: Prefers dark chocolate intermittently, aware of dietary cholesterol contributions. Physical Exam Results - Labs: Cholesterol 145 mg/dL, Vitamin D 13.7 ng/mL, Vitamin B12 223 pg/mL, normal CBC, normal electrolytes, normal renal and liver function. - Tests: Bone density test showing spine osteoporosis with a 5% density change. Plan 1. Observations in anxiety symptoms without medication currently; patient remains without need for anxiety medication.: Patient was informed and verbally consented to the use of an ambient scribe for clinic note documentation during this visit. Discussion Notes During the visit, I reviewed the patient's asthma management plan, emphasizing adherence to daily inhaler use and as-needed albuterol. We discussed the cessation of montelukast given ineffective symptom control. We discussed the current cholesterol level and targeted goals, reviewing dietary and lifestyle interventions. Vitamin D and B12 supplementation were advised, considering deficiency levels. Bone health strategies, including adequate intake of calcium and vitamin D, were highlighted. Further surveillance for pulmonary nodules 03/2025. We reviewed management of anxiety without medications, highlighting patient autonomy in choosing non-medicated approaches. We touched on lifestyle factors, including community involvement and travel. Patient Instructions Orders: Orders Lipid Panel 6 Months E55.9 - Vitamin D deficiency, unspecified, E78.00 - Pure hypercholesterolemia, unspecified Comprehensive Met. Panel 6 Months E55.9 - Vitamin D deficiency, unspecified Vitamin B12 and Folate 6 Months E53.8 - Deficiency of other specified B group vitamins Vitamin D 25-OH Total 6 Months E55.9 - Vitamin D deficiency, unspecified Medications: Discontinued raloxifene (Evista) Discontinued Reason: Change Referral Type 60 mg PO DAILY 30 days 30 tabs 3RF M81.0 - Age-related osteoporosis without current pathological fracture cetirizine (Zyrtec) Discontinued Reason: Patient Completed Course 10 mg PO DAILY PRN 30 caps 6RF allergy symptoms J30.89 - Other allergic rhinitis montelukast Discontinued Reason: Patient Refused 10 mg PO BEDTIME 30 tabs 4RF J45.20 - Mild intermittent asthma, uncomplicated alprazolam Discontinued Reason: Patient Completed Course 0.25 mg PO DAILY 30 days PRN 10 tabs 1RF anxiety F41.1 - Generalized anxiety disorder tiotropium bromide 1.25 mcg/actuation (Spiriva Respimat) Discontinued Reason: Patient Completed Course 2 puffs inhalation BEDTIME 4 grams 3RF J45.20 - Mild intermittent asthma, uncomplicated ropinirole administer 1-3 hours before bedtime Discontinued Reason: Doctor's Order 0.25 mg PO BEDTIME 30 tabs 2RF G25.81 - Restless legs syndrome
== END 2025-01-13 09:49 | disposition home or self-care (01) ==
LOC: HO.HMCH 09:18
PROVIDERS: PCP Internal Medicine; Visit Provider Internal Medicine
DX: C50.912 Malignant neoplasm of unspecified site of left female breast (principal); E78.00 Pure hypercholesterolemia, unspecified; J45.20 Mild intermittent asthma, uncomplicated; F41.1 Generalized anxiety disorder; R91.8 Other nonspecific abnormal finding of lung field; M81.0 Age-related osteoporosis without current pathological fracture; E53.8 Deficiency of other specified B group vitamins; E55.9 Vitamin D deficiency, unspecified

== ENCOUNTER → 2025-01-13 09:18 | Outpatient (BNVA) | payer MEDICARE, SELFPAY | PROVIDERS: PCP Internal Medicine; Visit Provider Internal Medicine | DX: C50.912 Malignant neoplasm of unspecified site of left female breast (principal); E78.00 Pure hypercholesterolemia, unspecified; J45.20 Mild intermittent asthma, uncomplicated; F41.1 Generalized anxiety disorder; R91.8 Other nonspecific abnormal finding of lung field; M81.0 Age-related osteoporosis without current pathological fracture; E53.8 Deficiency of other specified B group vitamins; E55.9 Vitamin D deficiency, unspecified | CPT/HCPCS: 96127; 99212 ==

== ENCOUNTER 2025-03-18 07:33 | Outpatient (REF) | payer MEDICARE, SELFPAY ==
--- NOTE | ~2025-03-18 | CT_ITS ---
CLINICAL HISTORY: R91.8 - Other nonspecific abnormal finding of lung field CT chest without contrast Comparison: None Findings: The heart size is normal. The visualized thyroid and mediastinum are unremarkable. The patient is status post left breast surgery and left axillary lymph node dissection. There is a 4 mm right upper lobe pleural-based nodule on image number 21 of series number 4. 4 mm nodule is seen in the right lower lobe on image number 76 of series number 4. 3 mm nodule is seen in the superior segment of the right lower lobe on image number 55. 4.5 mm pulmonary nodule is seen in the left lower lobe on image number 5.5 mm pleural-based nodule in the left lower lobe seen on image number The upper abdomen is unremarkable. No acute fractures. IMPRESSION: 1. multiple bilateral pulmonary nodules as described. According to the Fleischner criteria: 5 mm or smaller nodules need no follow-up in low risk, and [address] follow-up is optional in high risk patients. This document has been electronically signed by: Aaron Wayne MD on 03/18/2025 12:50:53
--- OUTSIDE RECORDS SUMMARY | 2025-03-18 07:35 | XMS_ITS | Patient Health Record ---
Author Organization [facility] Address [address] [place] [address] Care Team Providers Care [facility] Dispenser Name Role Phone Rasheed Guzman MD Primary Care Provider John Delong [phone] Allergies Allergen (clinical drug ingredient) Drug/Non Drug Allergy documented on EMR Reaction Allergy Type Onset Date Status Substance with sulfonamide structure and antibacterial mechanism of action (substance) Sulfa Antibiotics Unknown Drug Allergy Active Reason For Referral No Information Medications Medication SIG (Take, Route, Frequency, Duration) Notes [...] REDUCING OPHTHALMIC DRUGS). Ophthalmic for 120 Active Immunizations Vaccine Route Administration Date Status Comme nts Influenza Unknown 07/16/2021 Administered Social History Tobacco Use: Social History Observation Description Date Details (start date - stop date) Former Smoker NA - NA Tobacco Use/Smoking Question Answer Notes Patient is [...] Never (0 point) Points 0 Interpretation Negative Section Notes: Nonsmoker; no sig alcohol Problems Problem Type SNOMED Code ICD Code Onset Dates Problem Status W/U Status Risk Notes Problem Diverticulosis of colon (426219933) Diverticulosis of colon (K57.30) Active confirmed Problem [id number] Positive colorectal cancer screening using Cologuard test (R19.5) Active confirmed Plan Of Treatment Future Test Test Name Order Date COLONOSCOPY 09/02/2021 Insurance Providers Payer Name Payer Address Payer Phone Subscriber Number Group Number Insured Name Patient Relationship to Insured Coverage Start Date Coverage End Date [facility] [address] [place] [phone] [id number] SATNAM GRECO Self - patient is the insured Medical (General) History Medical History History ICD Code Denies [place],DM,CVA,renal disease Neg. screening colonoscopy in 09/2010 ex cept for a hyperplastic polyp Asthma Left breast cancer > 20 years ago-lumpec kim, XRT, Chemo Multiple sclerosis-stable Surgical History Surgery Date(Month/Year) left lumpectomy for breast cancer 1989
== END 2025-03-18 07:34 | disposition home or self-care (01) ==
LOC: HO.CT 07:33
PROVIDERS: PCP Internal Medicine; Visit Provider Nurse Practitioner Family
DX: R91.8 Other nonspecific abnormal finding of lung field (principal)
CPT/HCPCS: 71250

== ENCOUNTER → 2025-03-18 07:34 | Outpatient (BNV) | payer MEDICARE, SELFPAY | PROVIDERS: PCP Internal Medicine; Visit Provider Radiology Diagnostic Radiology | DX: R91.8 Other nonspecific abnormal finding of lung field (principal) | CPT/HCPCS: 71250 ==

== ENCOUNTER 2025-07-21 09:23 | Outpatient (AMB) | payer MEDICARE, SELFPAY ==
[2025-07-21 09:28] VITALS: BP 118/72; PULSE 93; TEMP 36.1; O2SAT 94; BMI 20.6
--- NOTE | 2025-07-21 09:28 | MHC.PC.OV ---
Vital Signs 07/21/25 09:28 Height 5 ft Weight 105 lb 8 oz BMI 20.6 BP 118/72 Blood Pressure Location Lt brachial Position Sitting Pulse 93 Pulse Source Pulse Oximeter Temp 97.0 F Temp Source Temporal Artery Scan Pulse Oximetry (%) 94 Oxygen Delivery Method Room Air Intake Visit Reasons: asthma Allergies Sulfa (Sulfonamide Antibiotics) (SULFA (SULFONAMIDE ANTIBIOTICS)) Allergy (Intermediate, Verified 07/21/25 09:31) ITCHING cholecalciferol (vitamin D3) (Vitamin D3) Allergy (Unknown, Verified 07/21/25 09:31) Unknown Medication List - Last Reconciled 07/21/25 by Rasheed Guzman MD albuterol sulfate 90 mcg/actuation (Ventolin HFA) 2 puffs inhalation Q4-6H PRN amoxicillin 875 mg PO BID fluticasone propion-salmeterol 250-50 mcg/dose (Wixela Inhub) 1 inh inhalation BID fluticasone propionate 50 mcg/actuation (Flonase Allergy Relief) 2 sprays intranasal DAILY multivitamin 1 tab PO DAILY Tobacco use date assessed: 07/21/25 Fall risk assessment: No Falls in past year Last assessed Fall Risk: 07/21/25 Dental Screening Dental Screen Date: 07/21/25 Did you have a dental visit in the last 12 months?: Yes Did you have a dental problem in the last 6 months where you did not have access to dental care?: No Was dental information given to patient?: Patient has dentist HPI asthma HPI Details congested L side 2 weeks with post nasal drip and L ear noise, feels like heart burn PFSH Medical History (Updated 07/21/25 @ 09:53 by Rasheed Guzman MD) Chest pain Generalized anxiety disorder COVID-19 vaccine series completed Positive colorectal cancer screening using Cologuard test Colon cancer screening Annual physical exam Rotator cuff dysfunction Multiple sclerosis Allergic rhinitis Pulmonary nodule Hypercholesterolemia Vitamin B12 deficiency Vitamin D deficiency Breast cancer Asthma Surgical History History of lumpectomy of left breast H/O colonoscopy Social History Housing: House Alcohol intake: current Alcohol intake frequency: holidays/special occasions only Patient Tobacco Use Status: Former Tobacco user Tobacco use type: Cigarette e-Cigarette/Vaping Use: Never Used Second Hand Smoke Exposure: No service: No Current occupational status: retired Cognitive needs: No Hearing needs: No Vision needs: Yes Questionnaire Thrive Questionnaire Date Thrive assessed: 01/13/25 ERMA-7 AMB Questionnaire ERMA-7 Date ERMA - 7 assessed: 01/13/25 Source: Developed by Drs. John Coy, Maritza Lam, Neri Portillo and colleagues, with an educational paul from [employer]. Physical exam (Primary Care) Vital Signs: Last Vital Signs Temp 97.0 F 07/21/25 09:28 Pulse 93 07/21/25 09:28 BP 118/72 07/21/25 09:28 Pulse Ox 94 07/21/25 09:28 Oxygen Delivery Method Room Air 07/21/25 09:28 BMI result Body Mass Index 20.6 Tobacco/Smoking Status: Tobacco use Status Tobacco use date assessed 07/21/25 07/21/25 09:32 Patient Tobacco Use Status Former Tobacco user 07/21/25 09:32 Tobacco use type Cigarette 07/21/25 09:32 e-Cigarette/Vaping Use Never Used 07/21/25 09:32 Thrive Assessment: Date of Thrive Assessment Date Thrive assessed 01/13/25 07/21/25 09:32 Const General: alert; No acute distress HENMT Other: Impacted cerumen bilateral Eyes Conjunctivae: conjunctivae normal Resp Auscultation: clear to auscultation bilaterally Cardio Rate: regular rate Rhythm: regular rhythm GI Inspection: Yes normal to inspection Extrem General: Yes normal to inspection and No edema Office Procedures Cerumen Removal From which ear canal was the cerumen removed: bilateral Removal: irrigation, otoscope w/curette, cerumen loop/spoon and other Notes: patient tolerated procedure well, no complications and ear canal clear [id number] Irrigation/Lavage Coding Level of Care Code Est Pt Level 4 (42058) Complex EM visit Add On G2211 Diagnoses Multiple pulmonary nodules R91.8 Malignant neoplasm of left female breast, unspecified estrogen receptor status, unspecified site of breast C50.912 Breast location: unspecified site of breast Estrogen receptor status: unspecified Laterality: left Patient sex: female Mild intermittent asthma without complication J45.20 Asthma complication type: uncomplicated Asthma persistence: intermittent Asthma severity: mild Hypercholesterolemia E78.00 Osteoporosis, unspecified osteoporosis type, unspecified pathological fracture presence M81.0 Osteoporosis type: unspecified Presence of current pathological fracture: unspecified Vitamin B12 deficiency E53.8 Vitamin D deficiency E55.9 Impacted cerumen of both ears H61.23 Impacted cerumen of left ear H61.22 Sinus congestion R09.81 CPT Codes Office Procedure - CPT: 05763-[id number] Irrigation/Lavage ([id number]) Assessment & Plan Assessment & Plan (1) Multiple pulmonary nodules: Comment: 03/2024, March 2025 Code(s): R91.8 - Other nonspecific abnormal finding of lung field Category: Medical Plan: Continue to follow-up with multiple pulmonary nodules. (2) Breast cancer: Comment: 2000 left lumpectomy chemotherapy radiation Code(s): C50.919 - Malignant neoplasm of unspecified site of unspecified female breast Category: Medical Qualifiers: Breast location: unspecified site of breast Estrogen receptor status: unspecified Laterality: left Patient sex: female Qualified Code(s): C50.912 - Malignant neoplasm of unspecified site of left female breast Plan: Mammogram up-to-date, continue to follow-up with Hematology-Oncology (3) Asthma: Comment: has wixela & albuterol inhalers Code(s): J45.909 - Unspecified asthma, uncomplicated Category: Medical Qualifiers: Asthma complication type: uncomplicated Asthma persistence: intermittent Asthma severity: mild Qualified Code(s): J45.20 - Mild intermittent asthma, uncomplicated Plan: On albuterol inhaler and Wixela (4) Hypercholesterolemia: Code(s): E78.00 - Pure hypercholesterolemia, unspecified Category: Medical Plan: Avoid fried foods, chicken skin, eggs, butter margarine, pastries and meat. Be it pork or beef they have a lot of cholesterol (5) Osteoporosis: Comment: July 2021, November 2024 Code(s): M81.0 - Age-related osteoporosis without current pathological fracture Category: Medical Qualifiers: Osteoporosis type: unspecified Presence of current pathological fracture: unspecified Qualified Code(s): M81.0 - Age-related osteoporosis without current pathological fracture Plan: Continue to keep active, discussion about calcium and vitamin-D. (6) Vitamin B12 deficiency: Code(s): E53.8 - Deficiency of other specified B group vitamins Category: Medical Plan: Discussion about vitamin B12 1000 mcg once a day (7) Vitamin D deficiency: Code(s): E55.9 - Vitamin D deficiency, unspecified Category: Medical Plan: Take vitamin-D 8331-3221 units once a day (8) Impacted cerumen of both ears: Code(s): H61.23 - Impacted cerumen, bilateral Category: Medical (9) Impacted cerumen of left ear: Code(s): H61.22 - Impacted cerumen, left ear Category: Medical (10) Sinus congestion: Code(s): R09.81 - Nasal congestion Category: Medical Plan History of Present Illness The patient is an 79-year-old female presenting for a follow-up visit. She has a history of asthma, managed with an albuterol inhaler and Wixela. Her hypercholesterolemia was last evaluated in October, with an LDL level of 145 mg/dL. The patient was diagnosed with left breast cancer in 2000, treated with lumpectomy and chemotherapy. She continues to follow up with hematology oncology for surveillance. Osteoporosis is part of her medical history, with the last bone density scan in November 2024. She is advised to maintain activity and discuss calcium and vitamin D supplementation. The patient has generalized anxiety disorder as part of her chronic conditions. Multiple pulmonary nodules were noted in March 2024, with continued follow-up advised. Her preventative care includes an up-to-date mammogram and a recommendation for a flu vaccination. Health Maintenance - Mammogram is up to date - Flu vaccination recommended - Discussion about calcium and vitamin D supplementation - Discussion about vitamin B12 supplementation Social History - Drinks iced tea regularly, with occasional beer consumption Review of Systems Physical Exam Results - Labs: Normal blood count, no anemia, normal electrolytes, renal function, and liver function (October) - Labs: LDL cholesterol at 145 mg/dL (October) - Labs: Low vitamin B12 and vitamin D levels, normal thyroid function Plan Patient was informed and verbally consented to the use of an ambient scribe for clinic note documentation during this visit. 1. Asthma The patient's asthma is managed with an albuterol inhaler and Wixela. 2. Hypercholesterolemia The patient's LDL cholesterol was last recorded at 145 mg/dL in October, and a cholesterol management plan is in place. 3. Breast Cancer The patient continues to follow up with hematology oncology for surveillance of her breast cancer history. 4. Osteoporosis The patient is advised to maintain activity and discuss calcium and vitamin D supplementation for osteoporosis management. 5. Generalized Anxiety Disorder The patient's generalized anxiety disorder is part of her chronic conditions, with no specific management changes discussed. 6. Multiple Pulmonary Nodules The patient is advised to continue follow-up for her multiple pulmonary nodules. 7. Preventative Care Preventative care includes an up-to-date mammogram and a recommendation for a flu vaccination. Discussion Notes During the visit, we discussed the importance of maintaining regular follow-ups for her multiple pulmonary nodules and breast cancer surveillance. We also reviewed her cholesterol management plan and the need for vitamin supplementation, including calcium, vitamin D, and vitamin B12. The patient was advised to receive a flu vaccination, which is available at the clinic or pharmacy. Patient Instructions - Continue using albuterol inhaler and Wixela as prescribed. - Follow up with hematology oncology for breast cancer surveillance. - Maintain physical activity and discuss calcium and vitamin D supplementation. - Get a flu shot at the clinic or pharmacy. Orders: Orders Complete Blood Count Auto Diff Today J45.20 - Mild intermittent asthma, uncomplicated Free T4 (Free Thyroxine) Today E53.8 - Deficiency of other specified B group vitamins Thyroid Stimulating Hormone Today E53.8 - Deficiency of other specified B group vitamins Medications: New fluticasone propionate 50 mcg/actuation (Flonase Allergy Relief) administer into each nostril 2 sprays intranasal DAILY 16 grams 0RF R09.81 - Nasal congestion amoxicillin 875 mg PO BID 14 tabs 0RF R09.81 - Nasal congestion
--- OUTSIDE RECORDS SUMMARY | 2025-07-21 10:34 | XMS_ITS | Patient Health Record ---
Author Organization [facility] Address [address] [place] [address] Care Team Providers Care Clinical Case Manager Name Role Phone Rasheed Guzman MD Primary Care Provider John Delong [phone] Allergies Allergen (clinical drug ingredient) Drug/Non Drug [...] Status Risk Notes Problem Diverticulosis of colon (621572227) Diverticulosis of colon (K57.30) Active confirmed Problem [id number] Positive colorectal cancer screening using Cologuard test (R19.5) Active confirmed Plan Of Treatment Future Test Test Name Order Date COLONOSCOPY 09/02/2021 Insurance Providers Payer Name Payer Address Payer Phone Subscriber Number Group Number Insured Name Patient Relationship to Insured Coverage Start Date Coverage End Date [facility] [address] [place] [phone] [id number] SATNAM GRECO Self - patient is the insured Medical (General) History Medical History History ICD Code Denies MO,DM,CVA,renal disease Neg. screening colonoscopy in 09/2010 ex cept for a hyperplastic polyp Asthma Left breast cancer > 20 years ago-lumpec kim, XRT, Chemo Multiple sclerosis-stable Surgical History Surgery Date(Month/Year) left lumpectomy for breast cancer 1989
== END 2025-07-21 10:07 | disposition home or self-care (01) ==
LOC: HO.HMCH 09:23
PROVIDERS: PCP Internal Medicine; Visit Provider Internal Medicine
DX: J45.20 Mild intermittent asthma, uncomplicated (principal); R91.8 Other nonspecific abnormal finding of lung field; C50.912 Malignant neoplasm of unspecified site of left female breast; E78.00 Pure hypercholesterolemia, unspecified; M81.0 Age-related osteoporosis without current pathological fracture; E53.8 Deficiency of other specified B group vitamins; E55.9 Vitamin D deficiency, unspecified; H61.23 Impacted cerumen, bilateral; R09.81 Nasal congestion

== ENCOUNTER → 2025-07-21 09:23 | Outpatient (BNVA) | payer MEDICARE, SELFPAY | PROVIDERS: PCP Internal Medicine; Visit Provider Internal Medicine | DX: J45.20 Mild intermittent asthma, uncomplicated (principal); R91.8 Other nonspecific abnormal finding of lung field; E78.00 Pure hypercholesterolemia, unspecified; M81.0 Age-related osteoporosis without current pathological fracture; E53.8 Deficiency of other specified B group vitamins; E55.9 Vitamin D deficiency, unspecified; H61.22 Impacted cerumen, left ear; R09.81 Nasal congestion; Z85.3 Personal history of malignant neoplasm of breast; F41.1 Generalized anxiety disorder | CPT/HCPCS: 69210; 99212 ==

== ENCOUNTER 2025-07-24 08:58 | Outpatient (REF) | payer MEDICARE, SELFPAY ==
[2025-07-24 09:11] LABS: MANUAL DIFF FLAG NO
[2025-07-24 09:39] LABS: Hematocrit 39.7 % (37.0-47.0); Hemoglobin 13.5 g/dl (12.0-16.0); Imm Gran Abs Auto 0.02 X10*3/uL (0.00-0.03); Imm Gran Pct Auto 0.3 % (0.0-0.4); Lymphocytes Absolute Auto 1.2 X10*3/uL (1.2-4.9); Mean Corpuscular HGB Conc 34.0 g/dl (31.0-35.0); Mean Corpuscular Hemoglobin 32.1 pg (27.0-33.0); Mean Corpuscular Volume 94.5 fL (80.0-98.0); NRBC Abs Auto 0.000 X10*3/uL (0.0-0.012); NRBC Pct Auto 0.0 /100WBC (0.0-0.2); Platelet Count 234 X10*3/uL (160-400); Red Blood Count 4.20 X10*6/uL (4.20-5.50); White Blood Count 6.9 X10*3/uL (4.8-10.8)
[2025-07-24 10:23] LABS: Alanine Aminotransferase 17 U/L (0-31); Albumin Level 4.6 g/dL (3.5-5.0); Alkaline Phosphatase 102 U/L (39-117); Anion Gap 13 (12-20); Aspartate Amino Transferase 19 U/L (5-31); Blood Urea Nitrogen 11 mg/dL (9-16); Calcium 9.7 mg/dL (8.4-10.2); Carbon Dioxide 30 mmol/L (22-29); Chloride 103 mmol/L (96-108); Cholesterol 236 mg/dL (<200); Estimated Glomerular Filt Rate > 60; HDL Cholesterol 77 mg/dL (>40); Potassium 4.0 mmol/L (3.3-5.1); Sodium 142 mmol/L (135-145); Total Protein 7.4 g/dL (6.5-8.0); Triglycerides 86 mg/dL (<150)
[2025-07-24 10:43] LABS: Free T4 (Free Thyroxine) 0.95 ng/dL (0.71-1.85); Thyroid Stimulating Hormone 3.03 uIU/mL (0.32-4.0)
[2025-07-24 10:55] LABS: Folate 9.2 ng/mL (> or = 4.0); Vitamin B12 < 148 pg/mL (200-900)
== END 2025-07-24 08:59 | disposition home or self-care (01) ==
LOC: HO.LAB 08:58
PROVIDERS: PCP Internal Medicine; Visit Provider Internal Medicine
DX: E53.8 Deficiency of other specified B group vitamins (principal); J45.20 Mild intermittent asthma, uncomplicated; E78.00 Pure hypercholesterolemia, unspecified; E55.9 Vitamin D deficiency, unspecified
CPT/HCPCS: 36415; 80053; 80061; 82306; 82607; 82746; 84439; 84443; 85025